=== PATIENT | male | born 1970 | race Caucasian/White ===

== ENCOUNTER → 2018-04-25 11:37 | Outpatient (CLI) | payer OTHER, SELFPAY ==
[2018-04-25 14:22] LABS: Vitamin B12 1418 pg/mL (211-911); Vitamin D,25 Hydroxy 34.6 ng/mL (29.95-100.01)
[2018-04-25 14:30] LABS: Erythrocyte Sedimentation Rate 7 mm/hr (0-15); Hematocrit 48.4 % (40-54); Hemoglobin 16.2 g/dl (13.0-16.5); Mean Corp Hgb Conc 33.5 g/gl (32-36); Mean Corpuscular Hgb 33.2 pg (27.0-32.0); Mean Corpuscular Volume 99.2 fL (80-94); Platelet Count 166 K/mm3 (150-450); RBC Distribution Width CV 12.4 % (11.6-14.6); RBC Distribution Width SD 44.9 fl (35.1-43.9); Red Blood Count 4.88 M/mm3 (4.6-6.2); White Blood Count 5.5 K/mm3 (4.4-11.0)
[2018-04-25 14:34] LABS: Scan Indicated on CBC? Y/N NO
[2018-04-25 14:43] LABS: Anion Gap 10 (5-15); BUN 13 mg/dL (7-18); Chloride 106 mmol/L (98-107); Creatinine, Serum 1.08 mg/dL (0.70-1.30); EST Glomerular Filtration Rate 78 mL/min (>60); Est Glom Filt Rate - Afr Amer 94 mL/min (>60); Glucose 80 mg/dL (74-106); Iron 116 ug/dL (65-175); Magnesium 2.1 mg/dL (1.6-2.6); Potassium 4.1 mmol/L (3.5-5.1); Sodium Level 143 mmol/L (136-145); Thyroid Stim Hormone (TSH) 2.23 uIU/mL (0.358-3.74)
== END ==
PROVIDERS: Family Provider Family Medicine; PCP Family Medicine; Visit Provider Family Medicine
DX: N18.9 Chronic kidney disease, unspecified (principal); G62.9 Polyneuropathy, unspecified
CPT/HCPCS: 36415; 80048; 82306; 82607; 83540; 83735; 84443; 85027; 85652

== ENCOUNTER → 2018-12-26 15:18 | Outpatient (CLI) | payer MEDICAID, SELFPAY ==
[2018-12-26 18:11] LABS: Vitamin D,25 Hydroxy 60.4 ng/mL (29.95-100.01)
[2018-12-30 12:07] LABS: Testosterone, % Free 3.98 % (1.50-4.20); Testosterone, Free 29.69 ng/dL (5.00-21.00)
[2019-01-02 17:28] LABS: Sex Hormone-binding Globulin 17.1 nmol/L (16.5-55.9); Testosterone, Total 746 ng/dL (264-916)
== END ==
PROVIDERS: Family Provider Family Medicine; PCP Family Medicine; Visit Provider Family Medicine
DX: E55.9 Vitamin D deficiency, unspecified (principal); Z79.890 Hormone replacement therapy
CPT/HCPCS: 36415; 82306; 84270; 84402; 84403

== ENCOUNTER → 2019-03-15 10:43 | Outpatient (CLI) | payer MEDICAID, SELFPAY ==
--- NOTE | 2019-03-15 10:52 | RAD_ITS ---
STUDY: X-RAY CHEST REASON FOR EXAM: Male, 48 years old. Cough. TECHNIQUE: PA and lateral views. COMPARISON: 02/19/2016. FINDINGS: The lungs are clear and expanded. There is no demonstrated pleural abnormality. Normal size heart. Normal mediastinum and rah. Normal visualized pulmonary arteries. Normal visualized aortic arch and descending thoracic aorta. Mild anterior wedging of the upper T9, upper T11 and upper T12 vertebral bodies are presumably from remote injury. They are unchanged. Normal visualized ribs, clavicles, and shoulders. Radiopaque coils in the region of the common hepatic artery from previous embolization procedure. RAD/Chest PA and Lateral IMPRESSION: 1. Normal x-ray examination of the chest. 2. Interval clearing of subsegmental atelectases in the lower lobes. 3. Mild anterior wedging of the upper T9, upper T11 and upper T12 vertebral bodies are presumably from remote injury. They are unchanged. 4. Radiopaque metallic coils in the upper abdomen from previous embolization in the region of the common hepatic artery or GDA. Electronically Signed: Enoch Yeboah MD at 15:53 EDT , Service support ,
== END ==
PROVIDERS: Family Provider Family Medicine; PCP Family Medicine; Referring Provider Family Medicine; Visit Provider Family Medicine
DX: R05 Cough (principal)
CPT/HCPCS: 71046

== ENCOUNTER → 2019-05-03 09:43 | Outpatient (CLI) | payer OTHER, SELFPAY ==
--- NOTE | 2019-05-03 09:55 | RAD_ITS ---
STUDY: X-RAY - ESOPHAGUS (BARIUM SWALLOW) WITH FLUOROSCOPY REASON FOR EXAM: Male, 48 years old. Dyspepsia. TECHNIQUE: 16 view(s) of the esophagus were obtained following swallowing of barium. FLUOROSCOPY TIME (if supplied): (0:25) minutes/seconds COMPARISON: None. FINDINGS: There is no demonstrated esophageal foreign body. There is no demonstrated stricture or mucosal abnormality. Normal gastroesophageal junction, without a demonstrated hiatal hernia. The patient ingested a 12 mm tablet of barium without difficulty. Normal visualized aortic arch and descending thoracic aorta. Normal visualized pulmonary parenchyma. Normal visualized osseous structures of the thorax. RAD/Esophagus Only IMPRESSION: Normal plain film x-ray examination (barium swallow) of the esophagus. Electronically Signed: Franklin Cerna, at 14:47 EDT , Service support ,
== END ==
PROVIDERS: Family Provider Family Medicine; PCP Family Medicine; Referring Provider Family Medicine; Visit Provider Family Medicine
DX: R10.13 Epigastric pain (principal)
CPT/HCPCS: 74220

== ENCOUNTER → 2019-05-12 10:14 | Outpatient (CLI) | payer OTHER, SELFPAY ==
[2019-05-12 12:39] LABS: Absolute Lymphocyte Count 1.18 X10^3/uL (0.83-4.51); Absolute Neutrophil Count 3.1 X10^3/uL (2.0-7.7); Basophil# 0.03 X10^3/uL; Basophil% 0.6 % (0-1); Hematocrit 52.6 % (40-54); Hemoglobin 17.2 g/dL (13.0-16.5); Lymphocyte # 1.18 X10^3/ul (4.0); Lymphocyte % 23.5 % (19-41); Mean Corp Hgb Conc 32.7 g/dL (32-36); Mean Corpuscular Hgb 32.7 pg (27.0-32.0); Mean Platelet Vol. 11.5 fl (6.2-12.0); Monocyte# 0.61 X10^3/uL; Monocyte% 12.2 % (0-10); NRBC Flagged by Analyzer 0 % (0-5); Neutrophil # 3.09 X10^3/uL (2.7-7.7); Neutrophil % 61.5 % (47-70); Platelet Count 177 K/mm3 (150-450); RBC Distribution Width CV 12.9 % (11.6-14.6); RBC Distribution Width SD 47.8 fl (35.1-43.9); Red Blood Count 5.26 M/mm3 (4.6-6.2)
[2019-05-12 12:51] LABS: Erythrocyte Sedimentation Rate 1 mm/hr (0-15)
[2019-05-12 12:54] LABS: ALB/GLOB Ratio 1.2 RATIO (0.9-2.4); AST(SGOT) 23 U/L (15-37); Alanine Aminotransfer ALT/SGPT 31 U/L (16-61); Albumin, Serum 3.7 g/dL (3.2-5.0); Alkaline Phosphatase 68 U/L (45-117); Anion Gap 6 (5-15); BUN 18 mg/dL (7-18); BUN/Creat Ratio 15.5 RATIO (10-20); CRP < 2.90 mg/L (0.0-3.0); Calcium,Total 8.9 mg/dL (8.5-10.1); Chloride 109 mmol/L (98-107); Cholesterol 163 mg/dL (200); Creatinine, Serum 1.16 mg/dL (0.70-1.30); EST Glomerular Filtration Rate 71 mL/min (>60); Est Glom Filt Rate - Afr Amer 86 mL/min (>60); Estradiol 29.5 pg/mL; Ferritin 56 ng/mL (26-388); Glucose 79 mg/dL (74-106); High Density Lipoprotein 49 mg/dL; Iron 123 ug/dL (65-175); Magnesium 2.3 mg/dL (1.6-2.6); Potassium 4.8 mmol/L (3.5-5.1); Protein, Total 6.7 g/dL (6.4-8.2); Sodium Level 145 mmol/L (136-145); Thyroid Stim Hormone (TSH) 2.56 uIU/mL (0.358-3.74); Triglycerides 59 mg/dL; Very Low Density Lipoprotein 12 mg/dL (5-40)
[2019-05-12 12:56] LABS: Vitamin B12 567 pg/mL (211-911); Vitamin D,25 Hydroxy 68.4 ng/mL (29.95-100.01)
[2019-05-15 12:30] LABS: ANTINUCLEAR ANTIBODIES DIRECT Negative (Negative)
[2019-05-16 16:08] LABS: Testosterone, Free 16.43 ng/dL (5.00-21.00)
[2019-05-17 12:55] LABS: Testosterone, % Free 3.65 % (1.50-4.20); Testosterone, Total 450 ng/dL (264-916)
== END ==
PROVIDERS: Family Provider Family Medicine; PCP Family Medicine; Referring Provider Family Medicine; Visit Provider Family Medicine
DX: G62.9 Polyneuropathy, unspecified (principal); Z13.220 Encounter for screening for lipoid disorders; R79.89 Other specified abnormal findings of blood chemistry
CPT/HCPCS: 36415; 80053; 80061; 82306; 82607; 82670; 82728; 83540; 83735; 84402; 84403; 84443; 85025; 85652; 86038; 86140

== ENCOUNTER 2019-12-21 10:36 | Day surgery (SDC) | payer OTHER, SELFPAY ==
[2019-12-15 11:13] VITALS: BMI 29.3
--- NOTE | 2019-12-16 07:56 | HP_ITS ---
Intake Vital Signs 12/15/19 Height 5 ft 9.25 in 12/15/19 Weight: 200 lb 12/15/19 BMI 29.3 12/15/19 BP 152/94 H 12/15/19 Blood Pressure Location Rt brachial 12/15/19 Position Sitting 12/15/19 Respiration 18 Intake Visit Reasons: Inguinal Hernia Room Service Clerk Required: No Is patient in pain?: No Allergies citalopram [From Celexa] Allergy (Mild, Verified 12/15/19 11:04) Unknown sertraline [From Zoloft] Allergy (Mild, Verified 12/15/19 11:04) Unknown Medications AA no.8 343 mg-carnitine 20 mg-grape 10 mg-cocoa 56 mg-hpqd472 capsule cap PO 12/15/19 [History Confirmed 12/15/19] cholecalciferol (vitamin D3) 50 mcg (2,000 unit) capsule 50 mcg PO DAILY 12/15/19 [History Confirmed 12/15/19] dimenhydrinate 50 mg tablet,extended release mg PO 12/15/19 [History Confirmed 12/15/19] fish, borage, flaxseed oils-omega 3,6,9 cb #1 400 mg-400 mg-400 mg cap 1 cap PO DAILY 12/15/19 [History Confirmed 12/15/19] kecgkylc-tbxkde-gko-cxi-pci-mgfu-horse 100 mg-100 mg-100 mg-125 mg tab tab PO 12/15/19 [History] PFSH Medical History Tinnitus (Acute) HTN (hypertension) (Chronic) Surgical History Previous back surgery (Acute) S/P left knee surgery (Acute) S/P right knee surgery (Acute) S/P surgical manipulation of ankle joint (Acute) S/P tonsillectomy (Acute) Family History Father Diabetes Uncle Cancer PANCREATIC Social History (Updated 12/16/19 @ 07:[address] Matt Hollis MD) Smoking Status: Never smoker alcohol intake: current alcohol intake frequency: holidays/special occasions only HPI HPI HPI: SATINDER MACK, is a 49 M who presents to the office today for HPI HPI Surgical H&P: Yes HPI: SATINDER MACK, is a 49 M who presents to the office today for left groin bulge. The patient reports that this started late last summer. He reports that it hurts with lifting. He reports that there is bulging and this past week he got worse and he has been having worse pain for the last week. There is no radiation of the pain. He does not describe any pain in his contralateral groin. ROS General General: Yes weight change; no fatigue Cardio Cardiovascular: Yes high blood pressure; no murmur, pacemaker, heart disease, atrial fibrillation, heart attack, heart stent, palpitations, shortness of breat with exertion or chest pain Psych Psychiatric: Yes depression and anxiety Resp Respiratory: No shortness of breath, Yes sleep apnea, Yes cough, No COPD, No asthma, No emphysema, No wheezing Gastro Gastrointestinal: No nausea or vomiting, No diarrhea, Yes constipation, No blood in stool, No acid reflux, Yes hemorrhoids, No ulcers, No gallbladder problem, No black,tarry stools Additional Details: Groin pain and bulging in the left groin Miguel Hematologic: No blood thinners Exam Const General: cooperative Orientation: alert, oriented x3 HENMT Head: normal to inspection Ears: hearing grossly normal bilaterally Eyes General: appearance normal, both eyes and all related structures Visual Ramirez: normal visual ramirez by confrontation Neck Neck: normal visual inspection Chest Chest palpation & inspection: normal inspection of the chest Resp Effort & Inspection: normal respiratory effort Auscultation: clear to auscultation bilaterally Cardio Rate: regular rate Rhythm: regular rhythm Heart Sounds: no murmurs GI Inspection: non-distended Palpation: soft, hernia indirect inguinal on the left, nontender Musc Cervical Spine: normal cervical lordosis, cervical ROM normal Skin General: no rashes or lesions noted Neuro General: alert, oriented x3 Cranial Nerves: CN's II-XI intact bilaterally Cognition: normal cognition Extrem General: normal to inspection, full ROM Psych Appearance: grossly normal Affect: normal affect Assessment & Plan Problems 1. Left inguinal hernia K40.90 Plan The patient has a left inguinal hernia. It is soft and reducible. The patient would like this repaired. I discussed open and laparoscopic approach with him. I discussed robotic assisted laparoscopic surgery. The patient would like to proceed with a laparoscopic robotic assisted left inguinal hernia repair with mesh. I discussed mesh placement in detail. I discussed the risks of the procedure including not limited to bleeding, infection, injury to surrounding organs, injury to bowel, chronic groin pain, nerve injury, hernia recurrence. The patient understands all the risks and would like to proceed. I also discussed the possibility of a contralateral hernia noticed intraoperatively. If the patient has a contralateral hernia he would like it repaired. Matt Hollis MD Pager: [facility] [address] [place] [address] [address] [place] [address] Office: Coding Level of Care Code Off vis,new,level 4 Diagnoses Left inguinal hernia K40.90 Time Spent (min) 45 12/16/19 4896 <Electronically signed by Matt cuadra MD> Date _ Matt Hollis MD I have re-examined the patient. There are no clinical changes since date of exam. I discussed the risk of COVID transmission with the patient as well. The patient understands the risks.
[2019-12-21] VITALS (9 sets, daily range): BP systolic 118–144; BP diastolic 79–85; PULSE 59–96; RESP 16; TEMP 36.6–36.8; O2SAT 92–99; BMI 28.9
--- NOTE | 2019-12-21 | HERN_PTH ---
PATIENT: SATINDER MACK [place] [facility] [id number] AGE/SX: 49/M ROOM: RE12/21/[address]: Dr. Matt Hollis MD : 1970 BED: DIS: 12/21/2019 SPEC #: [id number] RECD: 12/22/19 08:54 STATUS: AMRITA RERosa Elena #: [id number] STACY: 12/21/19 00:[address]: Matt Hollis DEPT: SURGICAL PATHOLOGY RECD BY: José Osullivan ENTERED: 12/22/19 08:55 SP TYPE: Hernia OTHR DR: Dr. Anshu iBllings MD Tissues: HERNIA Procedures: Surgery Specimen Level III HEADER OPERATION: Lap robotic inguinal hernia PRE-OP DIAGNOSIS: Left inguinal hernia K40.90 TISSUE SUBMITTED: Left hernia lipoma MICROSCOPIC DIAGNOSIS Left hernia lipoma: Mature adipose tissue, consistent with lipoma. SJ:joseph 12/25/19 MICROSCOPIC DESCRIPTION Slides are reviewed. GROSS DESCRIPTION Received in fixative is one container labeled with the patient's name and designated hernia left lipoma. The specimen consists of a piece of yellow adipose tissue measuring 6 x 5 x 1 cm. Sections reveal yellow adipose cut surfaces without areas of hemorrhage, necrosis or cystic degeneration. Asset Protection Representative sections are submitted in one cassette. / SJ:rg 12/22/19 TC:1 CPT: 69585
[2019-12-21] MEDS: Lactated Ringers 1,000 ML 100 ML IV ×2 (11:23→11:27)
[2019-12-21] MEDS: Cefazolin 2 GM in 0.9% Normal Saline 100 ML IV (12:15)
[2019-12-21] MEDS: Bupivacaine Mpf 0.5% 30 ML VIAL (12:42)
--- NOTE | 2019-12-21 14:16 | OP.PCM_ITS ---
Problem List (1) Left inguinal hernia Status: Acute Report of Operation Date of Procedure: 12/21/19 Pre-Operative Diagnosis: Left inguinal hernia Post-Operative Diagnosis: Same Surgery/Procedure Performed:: Robotic assisted laparoscopic left inguinal hernia repair with mesh Specimen's removed: Left cord lipoma Description of Procedure: Patient was brought back to the operating room and general anesthesia was induced. The abdomen was prepped and draped in the usual sterile fashion. An incision was made superior to the umbilicus and deepened the fascia. The fascia was elevated and a Veress needle was placed into the abdomen. A drop test was performed. The abdomen was insufflated to 15 mmHg. The Veress needle was removed and the camera port was placed into the abdomen and the camera was placed into the abdomen to inspect for injuries and there were none. The patient appeared to have an indirect left inguinal hernia. The right inguinal canal was intact with no hernia. Patient was placed in the steep Trendelenburg position and the robot was docked. An incision was made in the anterior peritoneum in the left lower quadrant and the dissection was carried down to the hernia sac. The hernia sac was reduced and the adhesions were lysed. Patient had a lipoma in the left cord which was also reduced and brought into the abdominal cavity. Pro-program analyst mesh was unfolded and placed in the left lower quadrant completely covering the inguinal hernia. The mesh covered the hernia with good overlap and then the peritoneum was reapproximated using a running 3-0V lock suture. The peritoneum completely cover the mesh is in the case. Next the robot was undocked and the camera port was replaced with a laparoscopic bag and the lipomas placed into the bag and removed through the midline incision. The midline fascia was then closed with an 0 Vicryl suture. All the incisions were anesthetized with lidocaine and closed with interrupted 4-0 Monocryl sutures. Steri-Strips and bandages were then applied. The scrotum was tacked to the end the case and contain both testicles. Patient was brought to PACU in stable condition and tolerated the procedure well. Grafts/Implants Used: Pro-program analyst mesh - Admit VTE Documentation VTE Mechan Device Prophylaxis: SCD's
--- NOTE | 2019-12-21 14:21 | DCINST_ITS ---
Discharge Diet: Light diet - advance as tolerated Discharge Activity: Return to Normal Activity, May Not Drive - for 2-3 days or while taking narcotic pain meds., May Shower - with the bandage in place 1-2 days after surgery. Lifting Restrictions: 20 pounds for 4 weeks. Additional Activity Instructions:: Climbing stairs is fine, walking is encouraged. Sitting in bed may be uncomfortable. Sitting up using your lateral muscles (sitting up sideways) is usually more comfortable. Do not drive, work heavy equipment of sign legal documents for 24 hours. If your hernia repair was an ingunial repair, you may have scrotal swelling, an ice pack and/or athletic support can provide more comfort. Pain medications may cause nausea, you should typically eat light foods as you take your pain medications. Pain medications may also cause constipation. If you have difficulty with this, discuss with your doctor. Call your doctor if your incision/area has: Continuous Slow Oozing, Sudden Increased Bleeding, Increased Pain/ Swelling, Increased Redness, Foul Smelling Discharge Call your doctor if you observe: Fever of 101 or Higher Suture Line Care: Avoid Pulling/Pushing, Avoid Pinching/Bending Change Dressing in (Days):: 3 - Leave steri-strips for 1 week. May protect with a guaze bandaid. Cleanse incision/area with: Keep Dressing Clean & Dry Allergies/Adverse Reactions: Allergies citalopram [From Celexa] Allergy (Mild, Verified 12/21/19 10:39) Unknown sertraline [From Zoloft] Allergy (Mild, Verified 12/21/19 10:39) Unknown Medications to take at Discharge cholecalciferol (vitamin D3) 50 mcg (2,000 unit) capsule 50 mcg PO DAILY 12/15/19 fish, borage, flaxseed oils-omega 3,6,9 cb #1 400 mg-400 mg-400 mg cap 1 cap PO DAILY 12/15/19 nftdlppb-jnoqbx-xrq-apv-inu-jpml-horse 100 mg-100 mg-100 mg-125 mg tab 1 tab PO DAILY 12/15/19 Dolpa 1 tab PO DAILY 12/18/19 Same 1 cap PO DAILY 12/18/19 Tryptophan [l-Tryptophan] 500 mg PO DAILY 12/18/19 Tyrosine [Pure l-Tyrosine] 500 mg PO DAILY 12/18/19 Primary Care Physician: César Billings MD [Primary Care Provider] - Test Results: Test results from this visit will be discussed in further detail at your follow- up appointment, if applicable. Please Follow Up With: Matt Hollis MD When: Please call to schedule 2 week follow up appointment. [phone]
--- NOTE | 2019-12-21 18:29 | SUR.PHASEII ---
bladder scan after pt had dribbling of urine showed 376ml
[2019-12-21] MEDS: Tamsulosin HCl 0.4 MG Capsule PO (18:38)
== END 2019-12-21 18:50 | disposition home or self-care (01) ==
LOC: SDC 10:37 → AC 10:38
PROVIDERS: PCP Family Medicine; Referring Provider Surgery; Visit Provider Surgery
PROC: 0YQ64ZZ Repair Left Inguinal Region, Percutaneous Endoscopic Approach (ICD-10-PCS; CPT 49650; principal; 2019-12-21 11:40)
DX: K40.90 Unilateral inguinal hernia, without obstruction or gangrene, not specified as recurrent (principal); D17.6 Benign lipomatous neoplasm of spermatic cord; I10 Essential (primary) hypertension
CPT/HCPCS: 00840; 49650; 55559; 88302; 88304; J7120; J2405

== ENCOUNTER → 2020-05-20 10:22 | Outpatient (CLI) | payer OTHER, SELFPAY ==
[2019-12-21 10:54] VITALS: BMI 28.9
[2020-05-20 12:48] LABS: Anion Gap 5 (5-15); BUN 15 mg/dL (7-18); Calcium,Total 8.8 mg/dL (8.5-10.1); Chloride 108 mmol/L (98-107); Creatinine, Serum 1.07 mg/dL (0.70-1.30); EST Glomerular Filtration Rate 78 mL/min (>60); Est Glom Filt Rate - Afr Amer 94 mL/min (>60); Glucose 83 mg/dL (74-106); Sodium Level 140 mmol/L (136-145)
[2020-05-22 09:44] LABS: Vitamin D,25 Hydroxy 41.1 ng/mL
[2020-05-23 14:08] LABS: Testosterone, Free 8.97 ng/dL (5.00-21.00)
[2020-05-23 14:52] LABS: Testosterone, % Free 4.04 % (1.50-4.20); Testosterone, Total 222 ng/dL (264-916)
== END ==
LOC: MFPLAB 10:22
PROVIDERS: PCP Family Medicine; Visit Provider Family Medicine
DX: R79.89 Other specified abnormal findings of blood chemistry (principal); F32.9 Major depressive disorder, single episode, unspecified
CPT/HCPCS: 36415; 80048; 82306; 82533; 84402; 84403; 84443

== ENCOUNTER → 2020-07-05 06:38 | Outpatient (CLI) | payer OTHER, SELFPAY ==
[2019-12-21 10:54] VITALS: BMI 28.9
--- NOTE | 2020-07-05 06:56 | MRI_ITS ---
STUDY: MRI LUMBAR SPINE WITHOUT CONTRAST REASON FOR EXAM: Male, 49 years old. L4/5 DISCECTOMY 12 YRS AGO, C/O BACK DISCOMFORT, TINGLING IN TESTICLES, ERECTILE DYSFUNCTION, NEUROPATHY BILATERAL FEET TECHNIQUE: Standardized fat and water weighted pulse sequences were obtained in the sagittal and axial planes. COMPARISON: 01/12/2008 FINDINGS: T12-L1: Normal endplates. Normal disc height, hydration and morphology. Normal bilateral facet joints. Normal central canal and bilateral lateral recesses. Normal bilateral intervertebral neural foramina. Normal lumbar lordosis. There is no substantial scoliosis. Normal conus medullaris that terminates at the T12 L1-2: Normal endplates. Normal disc height, hydration and morphology. Normal bilateral facet joints. Normal central canal and bilateral lateral recesses. Normal bilateral intervertebral neural foramina. L2-3: Interval development of a mild bilobed disc protrusion with a left paracentral annular tear produces mild spinal stenosis and mild bilateral neural foraminal stenosis. L3-4: Interval development of mild bilateral facet hypertrophy and ligament flavum hypertrophy. Mild broad disc protrusion produces mild spinal stenosis and mild bilateral neural foraminal stenosis. L4-5: Interval left laminotomy with resection of the left paracentral and preforaminal extrusion. Mild bilateral facet hypertrophy and ligament flavum hypertrophy. Mild bilobed disc protrusion produces mild spinal stenosis and mild left neural foraminal stenosis and moderate right neural foraminal stenosis with abutment of the right L4 nerve root laterally. L5-S1: Interval development of a moderate sized central disc protrusion produces moderate spinal stenosis with mild bilateral lateral recess stenosis and no neural foraminal stenosis. Normal visualized sacral ala. Normal visualized paraspinous soft tissue structures. MRI/Spine Lumbar (Routine) IMPRESSION: Multilevel degenerative changes, as described above. Electronically Signed: Armando Stanton MD at 10:27 EST Tel , Service support ,
== END ==
PROVIDERS: PCP Family Medicine; Referring Provider Family Medicine; Visit Provider Family Medicine
DX: M54.9 Dorsalgia, unspecified (principal)
CPT/HCPCS: 72148

== ENCOUNTER → 2020-07-17 10:26 | Outpatient (CLI) | payer OTHER, SELFPAY ==
[2019-12-21 10:54] VITALS: BMI 28.9
[2020-07-17 12:34] LABS: Absolute Lymphocyte Count 1.18 X10^3/uL (0.83-4.51); Absolute Neutrophil Count 4.4 X10^3/uL (2.0-7.7); Basophil# 0.04 X10^3/uL; Basophil% 0.6 % (0-1); Eosinophils% 1.6 % (0-5); Hematocrit 51.7 % (40-54); Hemoglobin 16.8 g/dL (13.0-16.5); Lymphocyte # 1.18 X10^3/ul (4.0); Lymphocyte % 18.6 % (19-41); Mean Corp Hgb Conc 32.5 g/dL (32-36); Mean Corpuscular Hgb 32.7 pg (27.0-32.0); Mean Corpuscular Volume 100.8 fL (80-94); Mean Platelet Vol. 11.4 fl (6.2-12.0); Monocyte# 0.62 X10^3/uL; Monocyte% 9.8 % (0-10); NRBC Flagged by Analyzer 0 % (0-5); Neutrophil # 4.38 X10^3/uL (2.7-7.7); Neutrophil % 68.9 % (47-70); Platelet Count 197 K/mm3 (150-450); RBC Distribution Width SD 45.9 fl (35.1-43.9); Red Blood Count 5.13 M/mm3 (4.6-6.2); White Blood Count 6.4 K/mm3 (4.4-11.0)
[2020-07-17 12:48] LABS: Erythrocyte Sedimentation Rate 8 mm/hr (0-15)
[2020-07-17 13:25] LABS: BUN 19 mg/dL (7-18); Creatinine, Serum 1.07 mg/dL (0.70-1.30); EST Glomerular Filtration Rate 78 mL/min (>60); Glucose 73 mg/dL (74-106)
[2020-07-17 13:26] LABS: ALB/GLOB Ratio 1.2 RATIO (0.9-2.4); AST(SGOT) 21 U/L (15-37); Alanine Aminotransfer ALT/SGPT 35 U/L (16-61); Alkaline Phosphatase 76 U/L (45-117); Anion Gap 6 (5-15); BUN/Creat Ratio 17.8 RATIO (10-20); CRP < 2.90 mg/L (0.0-3.0); Calcium,Total 9.4 mg/dL (8.5-10.1); Chloride 106 mmol/L (98-107); Est Glom Filt Rate - Afr Amer 94 mL/min (>60); Globulin 3.2 g/dL (2.2-4.2); Potassium 3.7 mmol/L (3.5-5.1); Protein, Total 7.2 g/dL (6.4-8.2); Sodium Level 138 mmol/L (136-145); Thyroid Stim Hormone (TSH) 1.57 uIU/mL (0.358-3.74)
[2020-07-18 16:09] LABS: Endomysial Antibody IgA Negative (Negative)
[2020-07-18 16:18] LABS: Deamidated Gliadin IgA 3 units (0-19); Deamidated Gliadin IgG 5 units (0-19); Immunoglobulin A 103 mg/dL (90-386); t-Transglutaminase IgA <2 U/mL (0-3)
[2020-07-23 12:08] LABS: Alternaria alternata <0.10 kU/L (Class 0); Bermuda Grass <0.10 kU/L (Class 0); Bluegrass, Kentucky <0.10 kU/L (Class 0); Cat Hair/Dander, Standard <0.10 kU/L (Class 0); D farinae Mite <0.10 kU/L (Class 0); D pteronyssinus <0.10 kU/L (Class 0); Dog Epithelia <0.10 kU/L (Class 0); Elm, American White <0.10 kU/L (Class 0); Oak, White <0.10 kU/L (Class 0); Plantain, English <0.10 kU/L (Class 0); Ragweed, Short/Common <0.10 kU/L (Class 0)
[2020-07-23 12:58] LABS: Mouse Urine <0.10 kU/L (Class 0)
== END ==
LOC: MFPLAB 10:29
PROVIDERS: PCP Family Medicine; Visit Provider Family Medicine
DX: R79.89 Other specified abnormal findings of blood chemistry (principal); K58.9 Irritable bowel syndrome, unspecified; R68.89 Other general symptoms and signs
CPT/HCPCS: 36415; 80053; 82784; 83516; 84403; 84443; 85025; 85652; 86003; 86140; 86255

== ENCOUNTER → 2020-07-19 15:44 | Outpatient (CLI) | payer OTHER, SELFPAY ==
[2019-12-21 10:54] VITALS: BMI 28.9
== END ==
PROVIDERS: PCP Family Medicine; Referring Provider Family Medicine; Visit Provider Family Medicine
DX: K58.9 Irritable bowel syndrome, unspecified (principal)
CPT/HCPCS: 87177; 87209

== ENCOUNTER 2020-08-14 09:00 | Outpatient (RCR) | payer OTHER, SELFPAY ==
[2019-12-21 10:54] VITALS: BMI 28.9
--- NOTE | 2020-07-29 10:59 | HP.PTEVAL_ITS ---
Patient's Visit Information SATINDER MACK is a 49 year old M referred to Physical Therapy by HARSH BONILLA with a diagnosis of Dorsalgia. Date of Evaluation: 07/10/20 Physical Therapist: Michael Arriola DPT - Visit Plan Frequency: 1x/Week Duration: 6 Weeks Plan: Start with hip flexor relase techniques, lower/upper abdominal strengthening, multifidus strengthening. Progress patient ROM to reduce fear avoidance of lumbar ROM. - Subjective Pt. is here today for his initial evaluation with diagnosis dorsalgia. Pt. reports having increased pain over the past 6 months. He had a laminectomy previously a few years ago without issues. Pt. reports having some abdominal pain and tingling in his legs and L hip. Pt. reports no mech of inury for new onset, but reports stopping his testosterone supplement and had to stop working out due to COVID. Pt. reports walking up with some abdominal tightness and the soreness inhis legs. He has recently been working on hip flexor stretching. Pt. reports no movements that make his symptoms worse. He believes that his change in symptoms might be due to decreased exercise. Pt. is hopeful to decrease symptoms and get back to working out with minimal limitations. - Pain lumbar spine Pain Intensity (Out of 10): 2 Pain Intensity Range: 0, 4 abdomen Pain Intensity (Out of 10): 2 Pain Intensity Range: 0, 4 - Objective POSTURE: Pt. has good posture, normal lordosis lumbar spine, normal/symmetrical illiac crest. PALPATION: Pt. is tender at bilateral piriformis muscle bellies, mild tenderness at bilateral multifidus. NEURO: normal throughout. ROM: LUMBAR SPINE: flexion min loss (tightness, fear avoidance), extension min loss (tight ness, fear avoidance), SB nil loss bilat NE, rotation min loss bilat (tightness, fear avoidance). Pt. has great HS length, slight tighness in B hip flexors. MMT: BLE strenght 5/5 without increase in symptoms. lower abdominals- 4/5, upper abdominals- 4/5, lumbar extension 4/5. GAIT: Pt. has normal gait pattern without increase in symptoms. STAIRS: normal without increase in symptoms. - Special Tests L/S Slump test left side: Negative L/S Slump test right side: Negative L/S Left Straight Leg Raise: Negative L/S Right Straight Leg Raise: Negative L/S Prone Instability Test: Positive Lumbar Standing: Flexion - Mechanical Response: No effect Lumbar Standing: Flexion - Symptoms During Testing: No effect Lumbar Standing: Flexion - Symptoms After Testing: No effect Lumbar Standing: Extension - Mechanical Response: No effect Lumbar Standing: Extension - Symptoms During Testing: No effect Lumbar Standing: Extension - Symptoms After Testing: No effect Lumbar Standing: Right Side Glides - Mechanical Response: No effect Lumbar Standing: Right Side Enterprise - Symptoms During Testing: No effect Lumbar Standing: Right Side Enterprise - Symptoms After Testing: No effect Lumbar Standing: Left Side Enterprise - Mechanical Response: No effect Lumbar Standing: Left Side Enterprise - Symptoms During Testing: No effect Lumbar Standing: Left Side Enterprise - Symptoms After Testing: No effect Lumbar Lying: Flexion - Mechanical Response: No effect Lumbar Lying: Flexion - Symptoms During Testing: No effect Lumbar Lying: Flexion - Symptoms After Testing: No effect Lumbar Lying: Extension - Mechanical Response: No effect Lumbar Lying: Extension - Symptoms During Testing: No effect Lumbar Lying: Extension - Symptoms After Testing: No effect Lumbar Static: Slouched Sit - Mechanical Response: No effect Lumbar Static: Slouched Sit - Symptoms During Testing: No effect Lumbar Static: Slouched Sit - Symptoms After Testing: No effect Lumbar Static: Sitting Erect - Mechanical Response: No effect Lumbar Static: Sitting Erect - Symptoms During Testing: No effect Lumbar Static: Sitting Erect - Symptoms After Testing: No effect Lumbar Static:Lying Prone in Extension - Mechanical Response: No effect Lumbar Static: Lying Prone in Extension - Sx During Testing: No effect Lumbar Static: Lying Prone in Extension - Sx After Testing: No effect - Goals Goal 1:: LTG: Pt. to be I with HEP. Goal Time Frame: 4-6 Weeks Goal 2:: STG: Pt. to have decreased pain upon waking to 0-2/10 allowing for improved quality of life. Goal Time Frame: 2-4 Weeks Goal 3:: LTG: Pt. to have increased hip flexor length by 25% allowing for decreased anterior pelvic tilting. Goal Time Frame: 4-6 Weeks Goal 4:: LTG: Pt. to have decreased lumbar spine, abdominal pain to 0-2/10 pain with all daily activities. Goal Time Frame: 4-6 Weeks Goal 5:: LTG: Pt. to have increased multifidus and abdominal strength to 5/5 throughout. Goal Time Frame: 4-6 Weeks - Rehabilitation Potential Physical Therapy Diagnosis: Pt. has signs and symptoms consistent with dorsalgia without radiculopathy. His special testing did not exaccerbate his symptoms today, as well as no movements reduced or increased symptoms. Pt. would benefit from PT to work on abdominal strengthening and multifidus strengthening. Rehabilitation Potential: Excellent - Anticipated Interventions Patient/Client Instruction: Educate patient on: Condition, Plan of Care, Risk Factors, Benefits of Fitness Program For the Purpose of:: To facilitate caregiver knowledge, To improve self management, To prevent re-injury, To improve ability to perform tasks related to life management, To improve tolerance to ADL's Therapeutic Exercise to Include: Strength training, Power training, Body mechanics, Postural training, Flexibilty training, Passive ROM, Active ROM, Dynamic Lumbar Stabilization, Nicol Exercises For the Purpose of:: To decrease pain, To decrease swelling/inflammation, To increase ROM, To improve nutrient delivery to tissue, To increase oxygenation perfusion, To improve muscle performance and motor function, To improve ability to perform ADL's, To decrease soft tissue restriction, To increase flexibility/ROM Thank you for the opportunity to evaluate your patient. For Medicare and Medicare HMO plans, please review the plan of care and approve it. It will need to be FAXED BACK to us at [phone] for Medicare purposes. For Medicare only, by signing this I certify the plan of care. Please let me know if there are questions or concerns regarding this plan of care. Physician Sig nature: Date:
--- NOTE | 2020-08-14 13:20 | HP.PTREVAL_ITS ---
Dr. César Billings MD, It has been my pleasure to treat SATINDER MACK over the last 5 visits for Dorsalgia. Please see the progress note below for an update on the physical therapy plan of care! Subjective: Pt. reports overall doing a little better, but is still having increased pain in his abdomen, which seems to be unchanged by lumbar spine ROM. She is still having tightness in AMs. He is overall more active, but is still anxious about his abdomenal tightness. Objective/Function: ROM: Lumbar spine: full ROM, patient did feel a little bit better after end range of extension. Pt. continues to have great HS length bilaterally. MMT: 5/5 throughout. Pt. is getting back to all working out routine without issues. Plan Plan: Pt. is independent with hip/core strengthening exercises. He is adding in end range extension progress. He felt today that his might have helped his ab dominal symptoms. Pt. to trial these exercise son his own for 3-4 weeks and follow up with physician as needed. I will keep his case open in case he needs to follow up. Goals Goal 1:: LTG: Pt. to be I with HEP. Goal Time Frame: 4-6 Weeks Goal Progress: Goal Met Goal 2:: STG: Pt. to have decreased pain upon waking to 0-2/10 allowing for improved quality of life. Goal Time Frame: 2-4 Weeks Goal Progress: Goal Met Goal 3:: LTG: Pt. to have increased hip flexor length by 25% allowing for decreased anterior pelvic tilting. Goal Time Frame: 4-6 Weeks Goal Progress: Goal Met Goal 4:: LTG: Pt. to have decreased lumbar spine, abdominal pain to 0-2/10 pain with all daily activities. Goal Time Frame: 4-6 Weeks Goal Progress: Progressing Goal 5:: LTG: Pt. to have increased multifidus and abdominal strength to 5/5 throughout. Goal Time Frame: 4-6 Weeks Goal Progress: Goal Met Anticipated Interventions Patient/Client Instruction: Educate patient on: Condition, Plan of Care, Risk Factors, Benefits of Fitness Program For the Purpose of:: To facilitate caregiver knowledge, To improve self management, To prevent re-injury, To improve ability to perform tasks related to life management, To improve tolerance to ADL's Therapeutic Exercise to Include: Strength training, Power training, Body mechanics, Postural training, Flexibilty training, Passive ROM, Active ROM, Dynamic Lumbar Stabilization, Nicol Exercises For the Purpose of:: To decrease pain, To decrease swelling/inflammation, To in crease ROM, To improve nutrient delivery to tissue, To increase oxygenation perfusion, To improve muscle performance and motor function, To improve ability to perform ADL's, To decrease soft tissue restriction, To increase flexibility/ROM Please do not hesitate to contact me at [phone] by phone or if you have questions or concerns regarding this new plan of care! Sincerely, PAU HinesT
== END 2020-08-14 19:00 | disposition home or self-care (01) ==
LOC: PT 09:00
PROVIDERS: PCP Family Medicine; Referring Provider Family Medicine; Visit Provider Family Medicine
DX: M54.9 Dorsalgia, unspecified (principal)
CPT/HCPCS: 97110; 97161; 97164

== ENCOUNTER → 2021-01-06 10:54 | Outpatient (CLI) | payer OTHER, SELFPAY ==
[2019-12-21 10:54] VITALS: BMI 28.9
[2021-01-06 10:57] LABS: Lyme Ab Screen Interpretation REF LAB
[2021-01-09 17:01] LABS: Lyme Scn Total Ab w/Rflx <0.91 ISR (0.00-0.90)
== END ==
LOC: MFPLAB 10:55
PROVIDERS: PCP Family Medicine; Visit Provider Family Medicine
DX: M25.50 Pain in unspecified joint (principal)
CPT/HCPCS: 36415; 86618

== ENCOUNTER → 2021-01-31 09:58 | Outpatient (CLI) | payer OTHER, SELFPAY ==
[2019-12-21 10:54] VITALS: BMI 28.9
--- NOTE | 2021-01-31 10:03 | RAD_ITS ---
STUDY: X-RAY - LEFT ELBOW REASON FOR EXAM: Male, 50 years old. ELBOW PAIN TECHNIQUE: 3 view(s) of the elbow. COMPARISON: None. FINDINGS: Normal visualized humerus, radius and ulna. Normal radiocapitellar and ulnotrochlear articulations. Joint effusion. Soft tissue swelling. RAD/Elbow min 3 Views IMPRESSION: Joint effusion and soft tissue swelling. Electronically Signed: Franklin Cerna MD at 13:20 EDT , Service support ,
== END ==
LOC: MTRAD 10:00
PROVIDERS: PCP Family Medicine; Referring Provider Family Medicine; Visit Provider Family Medicine
DX: M25.522 Pain in left elbow (principal)
CPT/HCPCS: 73080

== ENCOUNTER → 2021-02-07 11:10 | Outpatient (CLI) | payer OTHER, SELFPAY ==
[2019-12-21 10:54] VITALS: BMI 28.9
[2021-02-07 15:43] LABS: Uric Acid 4.2 mg/dL (3.5-7.2)
== END ==
LOC: MFPLAB 11:11
PROVIDERS: Family Medicine; PCP Family Medicine; Referring Provider Family Medicine; Visit Provider Family Medicine
DX: M25.522 Pain in left elbow (principal)
CPT/HCPCS: 36415; 84550

== ENCOUNTER → 2021-02-20 10:56 | Outpatient (CLI) | payer OTHER, SELFPAY ==
[2019-12-21 10:54] VITALS: BMI 28.9
--- NOTE | 2021-02-20 11:07 | MRI_ITS ---
STUDY: MRI BRAIN WITHOUT CONTRAST REASON FOR EXAM: Male, 50 years old. NUMBNESS TECHNIQUE: Standardized multiplanar fat and water weighted pulse sequences were obtained. COMPARISON: None. FINDINGS: Normal size of the ventricles and extra-axial spaces for the patient''s age. Normal white matter tracts of the supratentorial brain. There is no evidence for recent intracranial ischemia or other cause of cytotoxic edema on diffusion weighted imaging (DWI). Normal T2* images of the brain without demonstrated susceptibility artifact. There is no demonstrated hemosiderin stain. Normal bilateral basal ganglia. Normal thalami. There is no extra-axial fluid accumulation. Normal flow voids within the major intracranial circulation suggesting patency by spin echo criteria. Normal sella turcica, pituitary gland, infundibular stalk, optic chiasm and hypothalamus. Normal tectal plate and pineal gland. Normal midbrain, elfego and medulla. Normal cerebellum. Normal basal cisterns. Normal bilateral temporal bones. Normal bilateral internal auditory canals. No demonstrated orbital abnormality, within the constraints of a routine brain study. Normal visualized paranasal sinuses. Normal calvarium and skull base. Normal visualized soft tissue structures. Normal visualized upper cervical spine. MRI/Brain without Contrast IMPRESSION: Normal unenhanced MRI of the brain. Electronically Signed: Armando Stanton MD at 14:40 EDT Tel , Service support ,
== END ==
LOC: MRI 10:56
PROVIDERS: PCP Family Medicine; Referring Provider Family Medicine; Visit Provider Family Medicine
DX: R20.0 Anesthesia of skin (principal)
CPT/HCPCS: 70551

== ENCOUNTER → 2021-07-02 18:13 | Outpatient (CLI) | payer OTHER, SELFPAY ==
[2021-07-02 21:13] LABS: Probe Check PASS; Specimen Processing Control PASS
== END ==
PROVIDERS: PCP Family Medicine; Visit Provider Family Medicine
DX: U07.1 COVID-19 (principal)
CPT/HCPCS: 87635; U0005; U0003

== ENCOUNTER 2021-07-04 17:26 | Outpatient (CLI) | payer OTHER, SELFPAY ==
[2021-07-04 18:01] VITALS: BP 168/99; PULSE 75; RESP 16; TEMP 36.8; O2SAT 97; BMI 31.0
[2021-07-04] MEDS: 0.9% Saline Lock 10 ML Syringe IV (18:07)
[2021-07-04 18:40] VITALS: BP 176/99; PULSE 84; RESP 16; TEMP 36.7; O2SAT 96
[2021-07-04 19:40] VITALS: BP 168/99; PULSE 88; RESP 16; TEMP 36.9; O2SAT 98
== END 2021-07-04 19:55 | disposition home or self-care (01) ==
LOC: MS3OUT 17:26 → MS3 17:27
PROVIDERS: PCP Family Medicine; Referring Provider Nurse Practitioner Acute Care; Visit Provider Nurse Practitioner Acute Care
DX: Z23 Encounter for immunization (principal); U07.1 COVID-19
CPT/HCPCS: J7050; M0245; Q0245; A4216

== ENCOUNTER → 2021-07-07 11:08 | Outpatient (CLI) | payer OTHER, SELFPAY ==
[2021-07-07 15:44] LABS: ALB/GLOB Ratio 0.9 RATIO (0.9-2.4); AST(SGOT) 23 U/L (15-37); Alanine Aminotransfer ALT/SGPT 35 U/L (16-61); Albumin, Serum 3.1 g/dL (3.2-5.0); Alkaline Phosphatase 57 U/L (45-117); Anion Gap 7 (5-15); BUN 15 mg/dL (7-18); Calcium,Total 8.7 mg/dL (8.5-10.1); Chloride 108 mmol/L (98-107); Cholesterol 164 mg/dL (200); EST Glomerular Filtration Rate 84 mL/min (>60); Est Glom Filt Rate - Afr Amer 101 mL/min (>60); Estradiol 48.3 pg/mL; Globulin 3.6 g/dL (2.2-4.2); Glucose 69 mg/dL (74-106); High Density Lipoprotein 36 mg/dL; Potassium 4.1 mmol/L (3.5-5.1); Protein, Total 6.7 g/dL (6.4-8.2); Sodium Level 139 mmol/L (136-145); Triglycerides 79 mg/dL; Very Low Density Lipoprotein 16 mg/dL (5-40)
[2021-07-21 13:07] LABS: Testosterone, Free 20.48 ng/dL (5.00-21.00)
[2021-07-21 19:07] LABS: PSA, Free 0.19 ng/mL; PSA, Free % 21.1 % (.); PSA, Total Ultrasensitive 0.9 ng/mL (0.0-4.0); Testosterone, % Free 5.07 % (1.50-4.20); Testosterone, Total 404 ng/dL (264-916)
== END ==
LOC: MFPLAB 11:09
PROVIDERS: PCP Family Medicine; Visit Provider Family Medicine
DX: E29.1 Testicular hypofunction (principal); N42.9 Disorder of prostate, unspecified
CPT/HCPCS: 36415; 80053; 80061; 82670; 84153; 84154; 84402; 84403

== ENCOUNTER → 2021-07-16 10:49 | Outpatient (CLI) | payer OTHER, SELFPAY ==
[2021-07-20 17:07] LABS: Testosterone, Free 16.71 ng/dL (5.00-21.00)
[2021-07-21 08:58] LABS: Testosterone, % Free 3.13 % (1.50-4.20); Testosterone, Total 534 ng/dL (264-916)
== END ==
LOC: MFPLAB 10:51
PROVIDERS: PCP Family Medicine; Referring Provider Family Medicine; Visit Provider Internal Medicine Endocrinology, Diabetes & Metabolism
DX: E29.1 Testicular hypofunction (principal)
CPT/HCPCS: 36415; 84402; 84403

== ENCOUNTER 2021-08-12 07:58 | Day surgery (SDC) | payer OTHER, SELFPAY ==
[2021-08-12 08:19] VITALS: BP 153/108; PULSE 85; RESP 16; TEMP 36.8; O2SAT 95
[2021-08-12] MEDS: Lactated Ringers 1,000 ML 15 ML IV (08:28)
--- NOTE | 2021-08-12 09:24 | H&P.OPEN ---
HPI - General HPI Narrative SATINDER MACK, is a 50 M who presents for screening colonoscopy. The patient reports he is never had a colonoscopy in the past. He has no abdominal pain or blood in his stool. No family history of colon cancer. [facility] Medical History (Updated 08/12/21 @ 09:[address] Matt Hollis MD) Anxiety Back pain Chronic cough COVID-19 Depression Gastric reflux History of edema History of pain when walking HTN (hypertension) Hx of aneurysm Injury of back Injury of head and neck Migraine headache Non-smoker Tinnitus Wears glasses Home Medications cholecalciferol (vitamin D3) 50 mcg (2,000 unit) capsule 50 mcg PO DAILY 12/15/19 [History Last Taken Unknown] fish, borage, flaxseed oils-omega 3,6,9 cb #1 400 mg-400 mg-400 mg cap 1 cap PO DAILY 12/15/19 [History Last Taken Unknown] dmiqeelr-dekhdi-zad-eie-dho-nibc-horse 100 mg-100 mg-100 mg-125 mg tab 1 tab PO DAILY 12/15/19 [History Last Taken Unknown] Dolpa 1 tab PO DAILY 12/18/19 [History Last Taken Unknown] tryptophan 500 mg PO DAILY 12/18/19 [History Last Taken Unknown] tyrosine 500 mg PO DAILY 12/18/19 [History Last Taken Unknown] latanoprost 1 drp EACH EYE DAILY 07/04/21 [History Last Taken Unknown] timolol maleate 1 drp EACH EYE QHS 07/04/21 [History Last Taken Unknown] fluoxetine 10 mg PO DAILY 08/06/21 [History Last Taken Unknown] testosterone cypionate 200 mg IM QWEEK 08/06/21 [History Last Taken Unknown] Allergy/AdvReac Type Severity Reaction Status Date / Time citalopram [From Celexa] Allergy Mild Unknown Verified 08/12/21 08:18 sertraline [From Zoloft] Allergy Mild Unknown Verified 08/12/21 08:18 Family History Father Diabetes Uncle Cancer PANCREATIC Surgical History (Updated 08/06/21 @ 09:53 by Kaitlin Kaplan) Previous back surgery S/P left inguinal hernia repair S/P left knee surgery S/P right knee surgery S/P surgical manipulation of ankle joint S/P tonsillectomy Social History Smoking Status: Never smoker alcohol intake: current alcohol intake frequency: holidays/special occasions only Past Medical/Surgical History Planned Operation Planned Operative Procedure/s: COLONOSCOPY S.O.S: No Previous Hospitalizations/Surgeries HX Hospitalizations: No HX of Surgeries: back surgery Aneurysm repair right/left knee left ankle tonsillectomy Any Problems With Anesthesia: Yes (slow to awaken) You/Your Family Experience Fever (Hyperthermia) With Anes: No Cholinesterase deficiency: No Cardiovascular Hx Chest Pain within Last 2 months: No Hx of Irregular Heartbeat and/or Afib: No Hx Heart Attack: No Hx Congestive Heart Failure: No Hx Rheumatic Fever: No Hx Hypertension: No (WATCHING) Hx Internal Defibrillator: No Hx Pacemaker: No Hx Cardiac Catheterization: No Hx Cardiac Surgery/Stents/Etc.: No Hx Stress Test: No (ekg/dr curtis) Hx Pain in Legs when Walking/Leg Cramps: Yes (foot pain) Respiratory Chronic Cough: No HX of Shortness of Breath: No Hoarseness: No Hx Chronic Obstructive Pulmonary Disease (COPD): No Hx Asthma: No Hx Emphysema: No Hx Sleep Apnea: No (wears mouth vasiliy) CPAP: No Hx Respiratory Tract Infection/Cold (presently): No Do You Snore Loudly (louder than talking or can be heard): No Do You Often Feel Tired/ Fatigued/ Sleepy Dring Daytime?: No Has Anyone Observed You Stop Breathing During Sleep?: No Result (for STOP score): Negative Hx Smoking: No Smoking Status: Never smoker Gastrointestinal Hx Gastroesophageal Reflux: No (occ heartburn) Hx Gastrointestinal Disorders: No Hx Gastrointestinal Bleed: No Hx Ulcer: No Hx Hiatal Hernia: No Difficulty Chewing/Swallowing: No Special diet followed at home: No Hx Unplanned Weight Loss of 20#: No HX Unplanned Weight Gain of 20#: No Neurological Hx Seizures: No HX Syncope/Blackout Spells/Unconsciousness: No Hx Transient Ischemic Attacks (TIA): No Hx Multiple Sclerosis: No Hx Parkinson's Disease: No Hx Head/Neck Injury: Yes (multiple concussions) Hx Headaches: No Hx Back Injury/Pain: Yes (back surgery/prn pain) Recent Onset of Speech Difficulty: No Restless Legs: No Does patient have nerve stimulator: No Blood Disorder Hx Leukemia: No Bleeding Tendencies: No Hx Deep Vein Thrombosis: No Hx High Cholesterol: No Blood Transmitted Disease: No Hx Hepatitis: No Hx Cirrhosis: No Hx Anemia: No Hx Blood Disorders: No Genitourinary Hx Renal Disease: No Musculoskeletal Hx Arthritis: No Hx Rheumatoid Arthritis: No Hx Gout: No Recent Onset of an Orthopedic Problem: No Endocrine Hx Diabetes: No Thyroid Disease: No Hx Steroid Therapy: No Psycho/Social Hx Substance Use: No Hx Alcohol Use: No Hx Anxiety: Yes (supplements) Hx Depression: Yes (supplements) Mental Illness: No Hx Dementia: No Miscellaneous Hx Cancer: No Recent Exposure to Contagious Disease: No Hx of C-Diff: No Any Loose Teeth: No Allergies citalopram [From Celexa] Allergy (Mild, Verified 08/12/21 08:18) Unknown sertraline [From Zoloft] Allergy (Mild, Verified 08/12/21 08:18) Unknown Discharge Is Pt Admitted From a Senior Living, or a Intermediate: No After D/C, Where Do you Plan to Go: Return Home Vital Signs Vital Signs Vital Signs: 08/12/21 08:19 Temperature 98.2 F Temperature Source Temporal Pulse Rate 85 Respiratory Rate 16 Respiratory Pattern Normal Blood Pressure 153/108 H Blood Pressure Mean 123 Blood Pressure Source Monitor Blood Pressure Position Semi-Fowlers Blood Pressure Location Left Arm Pulse Ox 95 Oxygen Delivery Method Room Air Physical Exam Const alert and oriented x3 Resp normal respiratory effort and normal air movement Cardio regular rate and regular rhythm GI soft to palpation, non-tender and non-distended Assessment & Plan Assessment/Plan (1) Screen for colon cancer: PLAN: I explained endoscopy in detail to the patient. I explained the risks including but not limited to stroke or heart attack with anesthesia, perforation of the GI tract, bleeding, infection. I explained that any of these could necessitate further emergency surgery. The patient understands and all questions were answered sufficiently. The patient wishes to proceed with procedure. Matt Hollis MD Pager: [facility] [address] [place] [address], [address] [place] [address] Office: Surgery Risks - Colonoscopy Risks Include but are not Limited To: Risks include but are not limited to: Bleeding, perforation requiring further surgery, inability to complete colonoscopy requiring barium enema.
--- NOTE | 2021-08-12 09:52 | OP.CCLET_ITS ---
08/12/2021 César Billings [address] [place] [address] Re : Colonoscopy procedure for Kofi Sheth Dear Dr. Billings This procedure was performed on Thursday, August 12, 2021. My impressions and recommendations are as follows: Impressions : - The entire examined colon is normal on direct and retroflexion views. - No specimens collected. Recommendations : - Discharge patient to home. - Resume previous diet. - Continue present medications. - Repeat colonoscopy in 10 years for screening purposes. My findings are described in the full procedure note, which is enclosed. If I can be of further assistance, please feel free to contact me at Doctor phone number(s): , Work: . Sincerely, Matt Hollis MD 08/12/2021 9:51:20 AM This report has been signed electronically.
--- NOTE | 2021-08-12 09:52 | OP.COLON_ITS ---
Patient Name: Kofi Sheth Procedure Date: 08/12/2021 9:27 AM Date of : 1970 Age: 50 Procedure: Colonoscopy Indications: Screening for colorectal malignant neoplasm Providers: Matt Hollis MD Medicines: Monitored Anesthesia Care Patient Profile: This is a 50 year old male. Refer to note in patient chart for documentation of history and physical. Last Colonoscopy: none. The patient's first colonoscopy is today. Complications: No immediate complications. Procedure: Pre-Anesthesia Assessment: - Prior to the procedure, a History and Physical was performed, and patient medications and allergies were reviewed. The patient's tolerance of previous anesthesia was also reviewed. The risks and benefits of the procedure and the sedation options and risks were discussed with the patient. All questions were answered, and informed consent was obtained. Prior Anticoagulants: The patient has taken no previous anticoagulant or antiplatelet agents. After reviewing the risks and benefits, the patient was deemed in satisfactory condition to undergo the procedure. After I obtained informed consent, the scope was passed under direct vision. Throughout the procedure, the patient's blood pressure, pulse, and oxygen saturations were monitored continuously. The pediatric colonoscope was introduced through the anus and advanced to the cecum, identified by appendiceal orifice and ileocecal valve. The colonoscopy was performed without difficulty. The patient tolerated the procedure well. The quality of the bowel preparation was good. Scope In: 9:35:15 AM Scope Withdrawal Time 0 hours 5 minutes 22 seconds Scope Out: 9:47:03 AM Total Procedure Duration Time 0 hours 11 minutes 48 seconds Findings: The entire examined colon appeared normal on direct and retroflexion views. Impression: - The entire examined colon is normal on direct and retroflexion views. - No specimens collected. Recommendation: - Discharge patient to home. - Resume previous diet. - Continue present medications. - Repeat colonoscopy in 10 years for screening purposes. Procedure Code(s): --- Professional --- 52999, Colonoscopy, flexible; diagnostic, including collection of specimen(s) by brushing or washing, when performed (separate procedure) Diagnosis Code(s): --- Professional --- Z12.11, Encounter for screening for malignant neoplasm of colon CPT copyright 2017 [employer]. All rights reserved. The codes documented in this report are preliminary and upon manager building review may be revised to meet current compliance requirements. Matt Hollis MD 08/12/2021 9:51:20 AM This report has been signed electronically. Number of Addenda: 0 Note Initiated On: 08/12/2021 9:27 AM
[2021-08-12 09:54] VITALS: BP 108/77; BP 153/108; PULSE 71; RESP 18; TEMP 35.8; O2SAT 94
[2021-08-12 10:00] VITALS: BP 109/87; BP 153/108; PULSE 68; RESP 20; O2SAT 94
[2021-08-12 10:04] VITALS: BP 121/88; BP 153/108; PULSE 70; RESP 18; O2SAT 94
[2021-08-12 10:06] VITALS: BP 127/93; BP 153/108; PULSE 64; RESP 18; TEMP 36; O2SAT 94
[2021-08-12 10:45] VITALS: BP 153/108
== END 2021-08-12 10:45 | disposition home or self-care (01) ==
LOC: EN 07:59 → AC 07:59
PROVIDERS: PCP Family Medicine; Referring Provider Family Medicine; Visit Provider Surgery
PROC: 0DJD8ZZ Inspection of Lower Intestinal Tract, Via Natural or Artificial Opening Endoscopic (ICD-10-PCS; CPT 45378; principal; 2021-08-12 08:55)
DX: Z12.11 Encounter for screening for malignant neoplasm of colon (principal); F32.A Depression, unspecified; F41.9 Anxiety disorder, unspecified; Z79.899 Other long term (current) drug therapy; Z86.16 Personal history of COVID-19
CPT/HCPCS: 45378; J7120; J2405

== ENCOUNTER 2021-11-03 10:08 | Outpatient (CLI) | payer OTHER, SELFPAY ==
[2021-11-03 12:08] LABS: Absolute Lymphocyte Count 0.61 X10^3/uL (0.83-4.51); Absolute Neutrophil Count 5.5 X10^3/uL (2.0-7.7); Basophil# 0.05 X10^3/uL; Basophil% 0.7 % (0-1); Eosinophil# 0.04 X10^3/uL; Eosinophils% 0.6 % (0-5); Hemoglobin 18.5 g/dL (13.0-16.5); Lymphocyte # 0.61 X10^3/ul (0.83-4.51); Lymphocyte % 8.7 % (19-41); Mean Corp Hgb Conc 32.7 g/dL (32-36); Mean Corpuscular Hgb 32.3 pg (27.0-32.0); Mean Corpuscular Volume 98.8 fL (80-94); Mean Platelet Vol. 11.1 fl (6.2-12.0); Monocyte# 0.75 X10^3/uL; Monocyte% 10.6 % (0-10); NRBC Flagged by Analyzer 0 % (0-5); Neutrophil # 5.48 X10^3/uL (2.7-7.7); Neutrophil % 77.7 % (47-70); Platelet Count 154 K/mm3 (150-450); RBC Distribution Width CV 14.1 % (11.6-14.6); RBC Distribution Width SD 51.9 fl (35.1-43.9); Red Blood Count 5.73 M/mm3 (4.6-6.2); White Blood Count 7.1 K/mm3 (4.4-11.0)
[2021-11-03 12:15] LABS: Vitamin D,25 Hydroxy 79.9 ng/mL
[2021-11-03 12:26] LABS: Hematocrit 56.6 % (40-54)
[2021-11-03 12:29] LABS: ALB/GLOB Ratio 1.1 RATIO (0.9-2.4); AST(SGOT) 27 U/L (15-37); Alanine Aminotransfer ALT/SGPT 46 U/L (16-61); Albumin, Serum 3.5 g/dL (3.2-5.0); Alkaline Phosphatase 60 U/L (45-117); Anion Gap 3 (5-15); BUN 15 mg/dL (7-18); Calcium,Total 9.1 mg/dL (8.5-10.1); Chloride 108 mmol/L (98-107); Cholesterol 158 mg/dL (200); Creatinine, Serum 1.15 mg/dL (0.70-1.30); EST Glomerular Filtration Rate 71 mL/min (>60); Est Glom Filt Rate - Afr Amer 86 mL/min (>60); Ferritin 21 ng/mL (26-388); Globulin 3.1 g/dL (2.2-4.2); Glucose 74 mg/dL (74-106); High Density Lipoprotein 50 mg/dL; Iron 74 ug/dL (65-175); Iron Binding Capacity,Total 432 ug/dL (250-450); PERCENT IRON SATURATION 17.1 % (15.0-55.0); Potassium 3.9 mmol/L (3.5-5.1); Protein, Total 6.6 g/dL (6.4-8.2); Sodium Level 140 mmol/L (136-145); T4 Free Direct 0.52 ng/dL (0.76-1.46); Thyroid Stim Hormone (TSH) 1.41 uIU/mL (0.358-3.74); Triglycerides 53 mg/dL; Very Low Density Lipoprotein 11 mg/dL (5-40)
[2021-11-04 13:02] LABS: Pathologist Review Reviewed
[2021-11-14 12:08] LABS: Aldosterone, Serum < 1.0 ng/dL (0.0-30.0); Testosterone, % Free 4.72 % (1.50-4.20); Testosterone, Free 21.57 ng/dL (5.00-21.00)
[2021-11-14 13:17] LABS: PSA, Free 0.16 ng/mL; PSA, Free % 26.7 % (.); PSA, Total Ultrasensitive 0.6 ng/mL (0.0-4.0); Renin, Plasma 1.451 ng/mL/hr (0.167-5.380); Testosterone, Total 457 ng/dL (264-916)
== END 2021-11-03 23:59 | disposition home or self-care (01) ==
LOC: MFPLAB 10:09
PROVIDERS: PCP Family Medicine; Referring Provider Family Medicine; Visit Provider Internal Medicine Endocrinology, Diabetes & Metabolism
DX: E29.1 Testicular hypofunction (principal); E04.2 Nontoxic multinodular goiter; E55.9 Vitamin D deficiency, unspecified; I16.0 Hypertensive urgency; R79.89 Other specified abnormal findings of blood chemistry; E66.9 Obesity, unspecified
CPT/HCPCS: 36415; 80053; 80061; 82088; 82306; 82533; 82728; 83540; 83550; 84153; 84154; 84244; 84402; 84403; 84439; 84443; 85025

== ENCOUNTER 2021-11-14 09:03 | Outpatient (CLI) | payer OTHER, SELFPAY | END 2021-11-14 23:59 | disposition home or self-care (01) | LOC: MTLAB 09:05 | PROVIDERS: PCP Family Medicine; Referring Provider Internal Medicine Endocrinology, Diabetes & Metabolism; Visit Provider Internal Medicine Endocrinology, Diabetes & Metabolism | DX: E27.9 Disorder of adrenal gland, unspecified (principal) | CPT/HCPCS: 36415; 82533 ==

== ENCOUNTER 2021-11-24 08:55 | Outpatient (CLI) | payer OTHER, SELFPAY ==
[2021-12-08 17:02] LABS: Cortisol, Free 24Ur 753 ug/24 hr (5-64); Cortisol, Urinary Free 262 ug/L (Undefined)
== END 2021-11-24 23:59 | disposition home or self-care (01) ==
LOC: LABSPEC 08:56
PROVIDERS: PCP Family Medicine; Referring Provider Family Medicine; Visit Provider Internal Medicine Endocrinology, Diabetes & Metabolism
DX: E27.9 Disorder of adrenal gland, unspecified (principal)
CPT/HCPCS: 81050; 82530; 82570

== ENCOUNTER 2021-11-28 08:35 | Outpatient (CLI) | payer OTHER, SELFPAY ==
[2021-11-28 10:06] LABS: Absolute Lymphocyte Count 0.88 X10^3/uL (0.83-4.51); Absolute Neutrophil Count 5.8 X10^3/uL (2.0-7.7); Basophil# 0.03 X10^3/uL; Basophil% 0.4 % (0-1); Eosinophil# 0.04 X10^3/uL; Eosinophils% 0.5 % (0-5); Hematocrit 52.7 % (40-54); Hemoglobin 17.7 g/dL (13.0-16.5); Lymphocyte # 0.88 X10^3/ul (0.83-4.51); Lymphocyte % 11.7 % (19-41); Mean Corp Hgb Conc 33.6 g/dL (32-36); Mean Corpuscular Hgb 32.5 pg (27.0-32.0); Mean Corpuscular Volume 96.7 fL (80-94); Mean Platelet Vol. 11.2 fl (6.2-12.0); NRBC Flagged by Analyzer 0 % (0-5); Neutrophil # 5.83 X10^3/uL (2.7-7.7); Neutrophil % 77.5 % (47-70); Platelet Count 195 K/mm3 (150-450); RBC Distribution Width CV 12.8 % (11.6-14.6); RBC Distribution Width SD 45.4 fl (35.1-43.9); Red Blood Count 5.45 M/mm3 (4.6-6.2); White Blood Count 7.5 K/mm3 (4.4-11.0)
[2021-11-28 10:18] LABS: Anion Gap 6 (5-15); BUN 31 mg/dL (7-18); BUN/Creat Ratio 28.4 RATIO (10-20); Calcium,Total 8.5 mg/dL (8.5-10.1); Chloride 110 mmol/L (98-107); Creatinine, Serum 1.09 mg/dL (0.70-1.30); EST Glomerular Filtration Rate 76 mL/min (>60); Est Glom Filt Rate - Afr Amer 92 mL/min (>60); Glucose 92 mg/dL (74-106); Potassium 3.7 mmol/L (3.5-5.1); Sodium Level 142 mmol/L (136-145)
[2021-11-28 10:35] LABS: Vitamin B12 509 pg/mL (211-911)
== END 2021-11-28 23:59 | disposition home or self-care (01) ==
LOC: MFPLAB 08:35
PROVIDERS: PCP Family Medicine; Referring Provider Family Medicine; Visit Provider Family Medicine
DX: T14.8XXA Other injury of unspecified body region, initial encounter (principal); R79.89 Other specified abnormal findings of blood chemistry; R43.9 Unspecified disturbances of smell and taste; I10 Essential (primary) hypertension
CPT/HCPCS: 36415; 80048; 82607; 84403; 85025

== ENCOUNTER 2021-12-03 16:57 | Outpatient (CLI) | payer OTHER, SELFPAY ==
[2021-12-03 18:02] LABS: Absolute Lymphocyte Count 0.83 X10^3/uL (0.83-4.51); Basophil# 0.05 X10^3/uL; Basophil% 0.5 % (0-1); Eosinophil# 0.05 X10^3/uL; Eosinophils% 0.5 % (0-5); Hematocrit 53.8 % (40-54); Hemoglobin 17.8 g/dL (13.0-16.5); Lymphocyte # 0.83 X10^3/ul (0.83-4.51); Lymphocyte % 8.6 % (19-41); Mean Corp Hgb Conc 33.1 g/dL (32-36); Mean Corpuscular Hgb 32.7 pg (27.0-32.0); Mean Corpuscular Volume 98.9 fL (80-94); Mean Platelet Vol. 11.3 fl (6.2-12.0); Monocyte# 0.51 X10^3/uL; Monocyte% 5.3 % (0-10); NRBC Flagged by Analyzer 0 % (0-5); Neutrophil % 83.2 % (47-70); Platelet Count 188 K/mm3 (150-450); RBC Distribution Width CV 12.6 % (11.6-14.6); RBC Distribution Width SD 45.9 fl (35.1-43.9); Red Blood Count 5.44 M/mm3 (4.6-6.2); White Blood Count 9.6 K/mm3 (4.4-11.0)
== END 2021-12-03 23:59 | disposition home or self-care (01) ==
LOC: MTLAB 16:58
PROVIDERS: PCP Family Medicine; Referring Provider Internal Medicine Endocrinology, Diabetes & Metabolism; Visit Provider Internal Medicine Endocrinology, Diabetes & Metabolism
DX: E04.9 Nontoxic goiter, unspecified (principal); D75.1 Secondary polycythemia
CPT/HCPCS: 36415; 84439; 84443; 85025

== ENCOUNTER → 2021-12-15 | Outpatient (CLI) | payer OTHER, SELFPAY ==
[2021-12-15 12:02] LABS: T4 Free Direct 0.59 ng/dL (0.76-1.46)
== END | disposition home or self-care (01) ==
LOC: LABSPEC 08:13 → MTLAB 08:14
PROVIDERS: PCP Family Medicine; Referring Provider Physician Assistant Medical; Visit Provider Physician Assistant Medical
DX: E24.8 Other Cushing's syndrome (principal); E29.1 Testicular hypofunction
CPT/HCPCS: 36415; 82024; 82533; 84146; 84439

== ENCOUNTER → 2021-12-24 | Outpatient (CLI) | payer OTHER, SELFPAY ==
[2021-12-24 13:14] LABS: Anion Gap 6 (5-15); BUN 23 mg/dL (7-18); BUN/Creat Ratio 18.9 RATIO (10-20); Chloride 105 mmol/L (98-107); Creatinine, Serum 1.22 mg/dL (0.70-1.30); EST Glomerular Filtration Rate 67 mL/min (>60); Est Glom Filt Rate - Afr Amer 81 mL/min (>60); Glucose 161 mg/dL (74-106); Potassium 4.2 mmol/L (3.5-5.1); Sodium Level 142 mmol/L (136-145)
== END | disposition home or self-care (01) ==
LOC: MTLAB 08:22
PROVIDERS: PCP Family Medicine; Referring Provider Internal Medicine Endocrinology, Diabetes & Metabolism; Visit Provider Internal Medicine Endocrinology, Diabetes & Metabolism
DX: E24.8 Other Cushing's syndrome (principal); E27.9 Disorder of adrenal gland, unspecified
CPT/HCPCS: 36415; 80048; 82533

== ENCOUNTER → 2022-01-14 | Outpatient (CLI) | payer OTHER, SELFPAY ==
--- NOTE | 2022-01-14 08:34 | MRI_ITS ---
EXAM: MR HEAD WITHOUT AND WITH INTRAVENOUS CONTRAST CLINICAL INDICATION: Hogeland''s syndrome. TECHNIQUE: Multiplanar and multisequence MR images of the brain were obtained without and with intravenous contrast. This report was created using [employer] report Toolmeet technology. CONTRAST: IV 20ML CLARISCAN COMPARISON: MRI brain without contrast 02/20/2021. FINDINGS: BRAIN AND EXTRA-AXIAL SPACES: Prominent perivascular space in the region of the left anterior commissure is unchanged. No intra- or extra-axial hemorrhage. SELLA: Large minimally enhancing mass in the anterior pituitary gland measuring 2.2 x 1.9 cm in the sagittal projection (previously 1.4 x 1.2 cm) and 2 x 2.1 cm in the coronal projection (previously 1.8 x 1.4 cm). This accounts for the marked enlargement of the sella turcica and caudal protrusion of the mass into the sphenoid sinus and mild bulging into suprasellar cistern but no elevation or displacement of the optic chiasm. The mass partially encases the cavernous segment of the right internal carotid artery. There is no extension into the left cavernous sinus. AUDITORY SYSTEM: Unremarkable. The internal auditory canals are patent. BONES/JOINTS: Unremarkable. No discrete lytic or blastic abnormalities. SINUSES: See above. MASTOID AIR CELLS: Unremarkable as visualized. Clear. ORBITS: Unremarkable as visualized. Both globes, extraocular muscles, optic nerves and retrobulbar fat appear unremarkable. VASCULATURE: See above. 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 This has increased in size since 02/20/2021. The dimensions are given in the body of report. N.B. : The above Results were Read Back by Enoch Yeboah MD to Johnny Jose MD, and understanding confirmed on 01/14/2022 11:29:13 (ET). Electronically Signed: Enoch Yeboah MD at 11:18 EDT ,
== END | disposition home or self-care (01) ==
PROVIDERS: PCP Family Medicine; Visit Provider Internal Medicine Endocrinology, Diabetes & Metabolism
DX: E24.8 Other Cushing's syndrome (principal)
CPT/HCPCS: 70553; A9575

== ENCOUNTER → 2022-02-05 | Outpatient (CLI) | payer OTHER, SELFPAY ==
[2022-02-05 15:20] LABS: Hematocrit 45.8 % (40-54); Hemoglobin 15.7 g/dL (13.0-16.5)
[2022-02-05 15:52] LABS: ALB/GLOB Ratio 1.2 RATIO (0.9-2.4); AST(SGOT) 27 U/L (15-37); Alanine Aminotransfer ALT/SGPT 56 U/L (16-61); Albumin, Serum 3.6 g/dL (3.2-5.0); Alkaline Phosphatase 58 U/L (45-117); Anion Gap 10 (5-15); BUN 24 mg/dL (7-18); BUN/Creat Ratio 21.2 RATIO (10-20); Calcium,Total 8.9 mg/dL (8.5-10.1); Chloride 107 mmol/L (98-107); Creatinine, Serum 1.13 mg/dL (0.70-1.30); EST Glomerular Filtration Rate 73 mL/min (>60); Est Glom Filt Rate - Afr Amer 88 mL/min (>60); Follicle Stimulating Hormone 7.4 mIU/mL; Glucose 196 mg/dL (74-106); Luteinizing Hormone 2.1 mIU/mL; Potassium 3.7 mmol/L (3.5-5.1); Prolactin 7.2 ng/mL; Protein, Total 6.6 g/dL (6.4-8.2); Sodium Level 140 mmol/L (136-145); T4 Free Direct 1.17 ng/dL (0.76-1.46); Thyroid Stim Hormone (TSH) 0.04 uIU/mL (0.358-3.74)
[2022-02-13 12:08] LABS: Insulin Like Growth Factor 174 ng/mL (74-255); Testosterone, % Free 3.49 % (1.50-4.20); Testosterone, Free 1.88 ng/dL (5.00-21.00)
[2022-02-13 17:43] LABS: Growth Hormone 0.2 ng/mL (0.0-10.0); Testosterone, Total 54 ng/dL (264-916)
== END | disposition home or self-care (01) ==
LOC: MTLAB 13:17
PROVIDERS: PCP Family Medicine; Referring Provider Internal Medicine Endocrinology, Diabetes & Metabolism; Visit Provider Internal Medicine Endocrinology, Diabetes & Metabolism
DX: E24.0 Pituitary-dependent Cushing's disease (principal); E03.9 Hypothyroidism, unspecified; E29.1 Testicular hypofunction
CPT/HCPCS: 36415; 80053; 83001; 83002; 83003; 84146; 84305; 84402; 84403; 84439; 84443; 85014; 85018

== ENCOUNTER → 2022-03-10 | Outpatient (CLI) | payer OTHER, SELFPAY ==
[2022-03-10 10:26] LABS: Absolute Lymphocyte Count 1.55 X10^3/uL (0.83-4.51); Absolute Neutrophil Count 3.5 X10^3/uL (2.0-7.7); Basophil# 0.07 X10^3/uL; Basophil% 1.1 % (0-1); Eosinophil# 0.33 X10^3/uL; Eosinophils% 5.3 % (0-5); Hematocrit 42.8 % (40-54); Hemoglobin 14.1 g/dL (13.0-16.5); Lymphocyte # 1.55 X10^3/ul (0.83-4.51); Lymphocyte % 24.8 % (19-41); Mean Corp Hgb Conc 32.9 g/dL (32-36); Mean Corpuscular Hgb 34.2 pg (27.0-32.0); Mean Corpuscular Volume 103.9 fL (80-94); Mean Platelet Vol. 10.6 fl (6.2-12.0); Monocyte# 0.74 X10^3/uL; Monocyte% 11.8 % (0-10); NRBC Flagged by Analyzer 0 % (0-5); Neutrophil # 3.47 X10^3/uL (2.7-7.7); Neutrophil % 55.6 % (47-70); Platelet Count 260 K/mm3 (150-450); RBC Distribution Width CV 12.8 % (11.6-14.6); Red Blood Count 4.12 M/mm3 (4.6-6.2); White Blood Count 6.3 K/mm3 (4.4-11.0)
[2022-03-10 10:42] LABS: Hemoglobin A1c 6.4 % (3.8-5.6)
[2022-03-10 11:16] LABS: ALB/GLOB Ratio 1.2 RATIO (0.9-2.4); AST(SGOT) 20 U/L (15-37); Alanine Aminotransfer ALT/SGPT 53 U/L (16-61); Albumin, Serum 3.5 g/dL (3.2-5.0); Alkaline Phosphatase 66 U/L (45-117); Anion Gap 8 (5-15); BUN 17 mg/dL (7-18); BUN/Creat Ratio 15.6 RATIO (10-20); Calcium,Total 9.2 mg/dL (8.5-10.1); Chloride 106 mmol/L (98-107); Cholesterol 190 mg/dL (200); Creatinine, Serum 1.09 mg/dL (0.70-1.30); EST Glomerular Filtration Rate 76 mL/min (>60); Est Glom Filt Rate - Afr Amer 92 mL/min (>60); Glucose 94 mg/dL (74-106); High Density Lipoprotein 52 mg/dL; Potassium 4.1 mmol/L (3.5-5.1); Protein, Total 6.5 g/dL (6.4-8.2); Sodium Level 139 mmol/L (136-145); Thyroid Stim Hormone (TSH) 2.89 uIU/mL (0.358-3.74); Triglycerides 110 mg/dL; Very Low Density Lipoprotein 22 mg/dL (5-40)
[2022-03-11 09:43] LABS: T4 Free Direct 0.84 ng/dL (0.76-1.46)
[2022-03-11 09:50] LABS: Microalbumin,Random Urine 8.9 mg/L (NO RANGE EST.); Microalbumin:Creatinine Ratio 9.1 mg/g CRE (<30 mg/g CRE)
== END | disposition home or self-care (01) ==
LOC: MFPLAB 08:57
PROVIDERS: PCP Family Medicine; Referring Provider Family Medicine; Visit Provider Internal Medicine Endocrinology, Diabetes & Metabolism
DX: E24.0 Pituitary-dependent Cushing's disease (principal); E11.65 Type 2 diabetes mellitus with hyperglycemia; E78.5 Hyperlipidemia, unspecified; E03.9 Hypothyroidism, unspecified; R30.0 Dysuria
CPT/HCPCS: 36415; 80053; 80061; 82043; 82570; 83036; 84439; 84443; 85025; 87086

== ENCOUNTER → 2024-01-06 | Outpatient (CLI) | payer OTHER, SELFPAY ==
--- NOTE | 2024-01-06 16:51 | RAD_ITS ---
INDICATION: l leg weakness EXAMINATION/TECHNIQUE: X-RAY - XR Spine Lumbar Comp W/ Bending Min 6 Views: 6 views COMPARISON: Hip radiograph on same day FINDINGS: VERTEBRAE: Preserved vertebral body height. No fracture or acute compression deformity. Diffuse lumbar facet arthropathy most prominent L3-4, L4-5, L5-S1 with degenerative grade 1 retrolisthesis L2 on L3, without change on flexion or extension. Mild diffuse endplate degenerative change in the lower lumbar spine. Preservation of the normal lumbar lordosis. DISCS: Diffuse disc height loss in the lower lumbar spine most prominent at L3-4 and L4-5.. INCLUDED ABDOMEN: Right upper quadrant vascular coils. Included bowel gas pattern is non-obstructive. RAD/L/S Spine w Bend Min 6 Vw IMPRESSION: No evidence of lumbar spinal fracture. Moderate diffuse spondylosis, most prominent at L3-4 and L4-5 Electronically Signed: Rudolph Martinez MD at 18:50 EDT ,
--- NOTE | 2024-01-06 16:51 | RAD_ITS ---
INDICATION: loss motion, pain EXAMINATION/TECHNIQUE: X-RAY - XR Hip Unilateral with Pelvis when performed; 2-3 Views COMPARISON: No relevant prior comparison study available FINDINGS: PELVIC BONES: No displaced fracture, destructive or sclerotic lesions. Note that overlapping bowel shadows may however obscure fine detail. Sacroiliac joints are unremarkable. No widening of the pubic symphysis. HIPS: Normal left hip alignment. Severe left hip joint space loss with femoral acetabular subchondral sclerosis and mild subchondral cystic change. No visible fracture or subchondral collapse. Normal right hip alignment with preserved joint spacing and minimal osteophyte formation. SOFT TISSUES: No soft tissue swelling or gas. RAD/HIP, UNI W/ Pelvis 2-3 Views IMPRESSION: Severe left hip osteoarthritis. Electronically Signed: Rudolph Martinez MD at 22:55 EDT ,
[2024-01-06 17:49] LABS: Erythrocyte Sedimentation Rate 13 mm/hr (0-20)
[2024-01-06 18:23] LABS: Anion Gap 10 (5-15); BUN 16 mg/dL (7-18); BUN/Creat Ratio 15.7 RATIO (10-20); Calcium,Total 9.6 mg/dL (8.5-10.1); Chloride 105 mmol/L (98-107); Creatinine, Serum 1.02 mg/dL (0.70-1.30); EST Glomerular Filtration Rate 81 mL/min (>60); Est Glom Filt Rate - Afr Amer 98 mL/min (>60); Glucose 148 mg/dL (74-106); Potassium 3.7 mmol/L (3.5-5.1); Sodium Level 136 mmol/L (136-145); Thyroid Stim Hormone (TSH) 0.03 uIU/mL (0.358-3.74)
[2024-01-07 14:40] LABS: Free T3 3.1 pg/mL (2.18-3.98); T4 Free Direct 1.39 ng/dL (0.76-1.46)
== END | disposition home or self-care (01) ==
PROVIDERS: PCP Family Medicine; Referring Provider Family Medicine; Visit Provider Family Medicine
DX: M25.552 Pain in left hip (principal); E03.9 Hypothyroidism, unspecified; M62.81 Muscle weakness (generalized); E24.9 Cushing's syndrome, unspecified
CPT/HCPCS: 36415; 72114; 73502; 80048; 82533; 84439; 84443; 84481; 85652

== ENCOUNTER 2024-02-24 10:30 | Outpatient (RCR) | payer OTHER, SELFPAY ==
--- NOTE | 2024-01-17 14:06 | HP.PTEVAL_ITS ---
Patient's Visit Information Visit Information Visit Information: SATINDER MACK is a 53 year old M referred to Physical Therapy by Dr. Anshu Billings MD with a diagnosis of LEFT HIP PAIN. Date of Evaluation: 01/17/24 Physical Therapist: Brennon Cobos PT, Cert MDT, OCS Visit Plan Frequency: 2x /Week Duration: 4 Weeks Plan: HIP SEVERE ARTHROSIS PRECAUTION: CUSHIONING DISEASE PT INTERVENTIONS ROM ,STRENGTHENING HIP ,STRENGTHENING HIP/QUADS/HAMS ,ACTIVITY MODIFICATION ,CORE STRENGTHENING AND FUNCTIONAL STRENGTHENING Subjective Subjective: This 53 y/o male presents to physical therapy with left hip pain. Patient has had left hip pain for 8 months intermittent . Patient has h/o back surgery discectomy 2007. Patient seen DR x-rays hip showed severe arthrosis and lumbar Moderate diffuse spondylosis, most prominent at L3-4 and L4-5. Patient pain located groin region in /out of car. Patient pain aggravating factors walking/standing ,difficulty squats /kneel . Patient stairs are painful and difficult. Patient getting out of chair. Patient has complexity issue has derik disease and chemotherapy . Patient has pituitary tumor required surgery and chemotherapy and radiation.. Patient loss muscle mass and weakness. Denies paresthesia/tingling . Patient sleeping okay. Patient condition affects ADLS ,housework tasks and job demands. Patient goals to to get stronger . SOCIAL: VOCATION: Car business Pain Left Hip: Pain Intensity (Out of 10): 3 Pain Intensity Range: 9 Objective Objective: POSTURE:mild forward posture ,trunk flexed PALAPTION: unremarkable NEURO : denies paresthesia/tingling ,reflexes L3-4,L4-5 ,L5-S1 1/3 GAIT: ambulates with antalgic gait left side slow alonzo mild forward posture PROM HIP: flexion 100 degrees ,hip IR 0 ,hip abduction 35 degrees MMT: (peak force ) hip flexion 16.5 ,abduction 0 ,quads 18.1 ,hamstrings 17.1 LUMBAR ROM: flexion WFL ,extension severe loss ,side glides mod loss FLEXABLITY: hamstrings WFL Special Tests L/S Slump test left side: Negative L/S Slump test right side: Negative L/S Left Straight Leg Raise: Negative L/S Right Straight Leg Raise: Negative L Hip Scour: Positive L Hip Quadrant - Intraarticular Pathology: Negative L Hip JACEY - Intraarticular Pathology: Negative L Hip Trendelenberg - Glut Medius: Positive Balance/Special Test Scores Lower Extremity Functional Score: 24 Goals Goal 1:: Patient to be I with HEP for hip Goal Time Frame: 4-6 Weeks Goal 2:: Patient to improve hip AROM by 10-15 degrees to improve to function and stairs Goal Time Frame: 4-6 Weeks Goal 3:: Patient to improve peak force quads/hams/hip by 10-15 # strength to improve gait and function Goal Time Frame: 4-6 Weeks Goal 4:: Patient to demonstrate 50% improvement with less pain and improved function Goal Time Frame: 4-6 Weeks Goal 5:: Patient to improve LFES score by 5 -10 points to improve QOL and function Goal Time Frame: 4-6 Weeks Rehabilitation Potential Physical Therapy Diagnosis: Patient has severe orthosis hip with pain ,poor ROM ,weakness impairs walking and standing and ADLS along with contributing factors influences condition thus benefit from skilled PT Rehabilitation Potential: Good Anticipated Interventions Patient/Client Instruction: Educate patient on: Condition and Plan of Care For the Purpose of:: To decrease pain, To improve nutrient delivery to tissue, To increase oxygenation perfusion, To improve ability to perform ADL's, To decrease level of supervision to perform tasks, To improve gait and locomotor functions, To decrease soft tissue restriction, To increase flexibility/ROM, To improve balance and To improve tolerance to ADL's Therapeutic Exercise to Include: Strength training, Endurance training, Balance training, Postural training, Flexibilty training, Passive ROM, Active ROM and Dynamic Lumbar Stabilization Comment: QUADS/HAMS/HIP For the Purpose of:: To decrease pain, To increase ROM, To improve muscle performance and motor function, To improve ability to perform ADL's, To increase tolerance to activity/condition/position, To improve ability of physical actions for home/community/work/leisure, To improve health of tissue, To decrease soft tissue restriction, To increase flexibility/ROM, To improve endurance, To improve balance, To reduce risk of recurrence and To improve tolerance to ADL's Manual Therapy Techniques to Include: Mobilization Comment: HIP JOINT For the Purpose of:: To decrease pain, To increase ROM and To improve nutrient delivery to tissue Text: Thank you for the opportunity to evaluate your patient. For Medicare and Medicare HMO plans, please review the plan of care and approve it. It will need to be FAXED BACK to us at [phone] for Medicare purposes. For Medicare only, by signing this I certify the plan of care. Please let me know if there are questions or concerns regarding this plan of care. Physician Signature: Date:
--- NOTE | 2024-02-24 11:46 | HP.PTDCSUM ---
Discharge Summary D/C summary: It has been my pleasure to treat SATINDER MACK referred by Dr. Anshu Billings MD, with the diagnosis of LEFT HIP PAIN for a total of 9 visit(s). Discharge Date: 02/24/24 Please see the following information for a summary of their discharge status. Subjective Subjective: Patient would like to continue to fight hormone problems Pain Left Hip: Pain Intensity (Out of 10): 5 Overall Improvement % Improvement: 30 Objective Objective/Function: POSTURE:mild forward posture ,trunk flexed PALAPTION: unremarkable NEURO : denies paresthesia/tingling ,reflexes L3-4,L4-5 ,L5-S1 1/3 GAIT: ambulates with antalgic gait left side slow alonzo mild forward posture PROM HIP: flexion 100 degrees ,hip IR 0 ,hip abduction 35 degrees MMT: (peak force ) hip flexion 31.7 ,abduction 25.,quads 34 ,hamstrings 36.1 LUMBAR ROM: flexion WFL ,extension severe loss ,side glides mod loss FLEXABLITY: hamstrings WFL Goals Goal 1:: Patient to be I with HEP for hip Goal Progress: Goal Met Goal 2:: Patient to improve hip AROM by 10-15 degrees to improve to function and stairs Goal Progress: Progressing Goal 3:: Patient to improve peak force quads/hams/hip by 10-15 # strength to improve gait and function Goal Progress: Progressing Goal 4:: Patient to demonstrate 50% improvement with less pain and improved function Goal Progress: Progressing Goal 5:: Patient to improve LFES score by 5 -10 points to improve QOL and function Goal Progress: Goal Met Plan Plan: D/C TO HEP D/C Information Discharge Comments: HEP d/c sentence: If there are questions or concerns regarding this patient's physical therapy, please feel free to call me at [phone]. Thank you for the referral of this patient. Sincerely, Brennon Cobos, PT, Cert MDT, OCS Balance/Gait/Functional tests Balance/Special Test Scores Lower Extremity Functional Score: 37 Improvement % Improvement: 30
== END 2024-02-24 19:00 | disposition home or self-care (01) ==
LOC: PT 10:30
PROVIDERS: PCP Family Medicine; Referring Provider Family Medicine; Visit Provider Family Medicine
DX: M25.552 Pain in left hip (principal)
CPT/HCPCS: 97110; 97162; 97530

== ENCOUNTER → 2024-03-13 | Outpatient (CLI) | payer OTHER, SELFPAY | END | disposition home or self-care (01) | PROVIDERS: PCP Family Medicine; Referring Provider Family Medicine; Visit Provider Family Medicine | DX: R39.198 Other difficulties with micturition (principal) | CPT/HCPCS: 87086; 87088 ==

== ENCOUNTER → 2024-03-21 | Outpatient (CLI) | payer OTHER, SELFPAY | END | disposition home or self-care (01) | LOC: LABSPEC 14:54 | PROVIDERS: PCP Family Medicine; Visit Provider Family Medicine | DX: R39.198 Other difficulties with micturition (principal) | CPT/HCPCS: 87086 ==

== ENCOUNTER 2024-03-27 11:19 | Day surgery (SDC) | payer OTHER, SELFPAY ==
--- NOTE | 2024-03-21 13:41 | EKG12_ITS ---
Test Reason : PREOP Blood Pressure : / mmHG Vent. Rate : 085 BPM Atrial Rate : 085 BPM P-R Int : 128 ms QRS Dur : 126 ms QT Int : 402 ms P-R-T Axes : 036 -20 025 degrees QTc Int : 478 ms Normal sinus rhythm Right bundle branch block Abnormal ECG Confirmed by Krunal Londono ([id number]), food editor TIM JOINER ([id number]) on 03/22/2024 10:05:08 AM Referred By: Matt Hollis Confirmed By:Krunal Londono
[2024-03-21 14:22] LABS: Hematocrit 38.7 % (40-54); Hemoglobin 12.6 g/dL (13.0-16.5); Mean Corp Hgb Conc 32.6 g/dL (32-36); Mean Corpuscular Hgb 31.7 pg (27.0-32.0); Mean Corpuscular Volume 97.5 fL (80-94); Platelet Count 229 K/mm3 (150-450); RBC Distribution Width CV 12.2 % (11.6-14.6); RBC Distribution Width SD 43.8 fl (35.1-43.9); Red Blood Count 3.97 M/mm3 (4.6-6.2); White Blood Count 5.1 K/mm3 (4.4-11.0)
[2024-03-27] VITALS (8 sets, daily range): BP systolic 107–126; BP diastolic 59–97; PULSE 69–85; RESP 14–16; TEMP 36.3–36.9; O2SAT 93–100; BMI 25.2
--- NOTE | 2024-03-27 12:24 | PCM.PRE.AN2 ---
ASA Classification* ASA Classification ASA Classification: 3 Assessment & Plan Anesthesia* Anesthesia Assessment Anesthesia Assessment: Discussed sedation and/or anesthesia options, risks, benefits, and alternatives with patient/parents/legal guardian/POA. Questions invited. The patient/parents/legal guardian/POA seems to understand and agrees to proceed with anesthesia plan. Reviewed the physical assessment, medical history, allergy history and patient home medications list prior to surgery/procedure/anesthetic and documented any changes. Performed airway and anesthesia risk assessments. Anesthesia Type Anesthesia Type: General History Source History Obtained from:: Patient and Chart Anesthesia Focused Assessment* Oxygen Delivery Method: Room Air Airway Assessment Mouth opens: >3 cm Mallampati Score: III Teeth Condition: Caps/Crowns (Patient has 4 crowns. All tight.) Neck Range of motion (ROM): Full ROM Pertinent Findings EKG Pertinent Findings:: . normal sinus rhythm. Right bundle branch block. Focused Labs Anesthesia Preop lab: CBC WBC 5.1 K/mm3 (4.4-11.0) 03/21/24 13:58 RBC 3.97 M/mm3 (4.6-6.2) L 03/21/24 13:58 Hgb 12.6 g/dL (13.0-16.5) L 03/21/24 13:58 Hct 38.7 % (40-54) L 03/21/24 13:58 Plt Count 229 K/mm3 (150-450) 03/21/24 13:58 CHEMISTRY Potassium 3.7 mmol/L (3.5-5.1) 01/06/24 16:41 Sodium 136 mmol/L (136-145) 01/06/24 16:41 Magnesium 2.3 mg/dL (1.6-2.6) 05/12/19 10:14 BUN 16 mg/dL (7-18) 01/06/24 16:41 Creatinine 1.02 mg/dL (0.70-1.30) 01/06/24 16:41 Glucose 148 mg/dL (74-106) H 01/06/24 16:41 TSH 0.10 uIU/mL (0.358-3.74) L 03/21/24 13:58 COAG Pre-Assessment Diagnosis/Proposed Procedure Planned Operative Procedure(s): (R) Lap Robotic Inguinal Hernia w/mesh Anesthesia History Anesthesia History - radiation oncology therapist: Anesthesia History - radiation oncology therapist Hx Hospitalization Yes: 09/2023 [facility] 03/17/24 09:58 TUMOR - UNCONTROLLED CORTISOL Any Problems With Anesthesia Yes: slow to awaken 03/17/24 09:58 Cholinesterase deficiency No 03/17/24 09:58 You/Your Family Experience No 03/17/24 09:58 fever (hyperthermia) with Relationship Recent Exposure to Contagious No 08/12/21 09:25 Disease Does patient have nerve No 03/17/24 09:58 stimulator Patient instructed to have device shut off --Does patient have Pacemaker or ICD? When Was Last Pacemaker Check QUESTION #4 FULL TEXT: You/Your Family Experience fever (hyperthermia) with Anesthesia Last Oral Intake Last Oral intake: Last Oral Intake NPO since Meds taken in AM with sips of water? Meds patient instructed to take am of surgery Any additional information?: Yes NPO since: 00:00 PONV PONV - radiation oncology therapist: PONV - radiation oncology therapist Female No 03/17/24 09:58 HX of Motion Sickness No 03/17/24 09:58 HX of N/V After Surgery No 03/17/24 09:58 Non-Smoker Yes 03/17/24 09:58 Duration of Surgery greater Yes 03/17/24 09:58 than 60 minutes Number of Risk Factors 2 03/17/24 09:58 PONV Score Moderate Risk 03/17/24 09:58 Height & Weight Height & Weight: Anesthesia: Height & Weight Height 5 ft 10 in 02/21/24 13:45 Respiratory Assessment Respiratory Assessment - radiation oncology therapist: Respiratory Tract Infection Hx - radiation oncology therapist Hx Respiratory Tract Infection No 03/17/24 09:58 STOP Sleep Apnea STOP Sleep Apnea - radiation oncology therapist: STOP Sleep Apnea - radiation oncology therapist Hx Hypertension No 03/17/24 09:58 Hx Sleep Apnea No 03/17/24 09:58 CPAP No 08/12/21 09:25 BIPAP Do you snore loudly (louder No 03/17/24 09:58 than talking or can be heard Do you often feel tired/ No 03/17/24 09:58 fatigued/ sleepy during daytime? Has anyone observed you stop No 03/17/24 09:58 breathing during sleep? STOP Results Negative 03/17/24 09:58 QUESTION #5 FULL TEXT : Do you snore loudly (louder than talking or can be heard through closed doors)? Tobacco Use History Tobacco Use History - radiation oncology therapist: Tobacco Use History - radiation oncology therapist Tobacco Use Smoking Status Never smoker 03/17/24 09:58 Hx Tobacco Use No 03/17/24 09:58 Years Smoking Packs Smoked per Day Smoking Cessation Date was within the last 15 years Hx Smoking Cessation Date Hx Smoking Cessation Counseling Hematologic Medial History Hematologic Hx - radiation oncology therapist: Hematologic Medical Hx - otolaryngology physician Hx of Blood Transfusion No 03/17/24 09:58 Hx of Transfusion in last 3 No 03/17/24 09:58 Months Date of Last Transfusion (if within last 3 months) Ever experience any problems No 03/17/24 09:58 with transfusion(s)? Specify any problems Hx of Preganancy in last 3 N/A 03/17/24 09:58 Months Nurse Filling Out Transfusion NBUCHER 03/17/24 09:58 & Questions: Date: 03/17/24 03/17/24 09:58 Time: 10:00 03/17/24 09:58 Patient unable to answer at this time (ie. confused, unrespo /Reproduction History /Reproductive History - radiation oncology therapist: /Reproductive Hx- radiation oncology therapist Hx Now Gestational Age (in weeks): EDC: Hx Hx Para Hx Section SAB Active Medications Active Medications: Current Medications Generic Name Dose Route Start Last Admin Trade Name Freq PRN Reason Stop Dose Admin Cefazolin Sodium 2 gm/ Sodium 110 mls @ 150 mls/hr 03/27/24 12:55 Chloride IV 03/27/24 13:38 PREOP ONE Lactated Ringer's 1,000 mls @ 15 mls/hr 03/27/24 11:30 IV .Q48H RITA PFSH Medical History Cancer Uses wheelchair History of steroid therapy Thyroid disease Cataract Arthritis [place]'s disease Pituitary adenoma Wears glasses Depression Anxiety Injury of back Back pain Migraine headache Injury of head and neck Gastric reflux Non-smoker Chronic cough History of pain when walking History of edema COVID-19 Hx of aneurysm Tinnitus HTN (hypertension) Home Medications ?Medication ?Instructions ?Recorded ?Last Taken ?Type cholecalciferol (vitamin D3) 50 50 mcg PO DAILY 12/15/19 Unknown History mcg (2,000 unit) capsule (Vitamin D3) fish, borage, flaxseed oils-omega 1 cap PO DAILY 12/15/19 Unknown History 3,6,9 cb #1 400 mg-400 mg-400 mg cap (Triple [place] 3-6-9) Dlpa 1 tab PO DAILY 12/18/19 Unknown History tyrosine 500 mg capsule 500 mg PO DAILY 12/18/19 Unknown History latanoprost 0.005 % eye drops 1 drp EACH EYE DAILY 07/04/21 Unknown History timolol maleate 0.5 % eye drops 1 drp EACH EYE QHS 07/04/21 Unknown History fluoxetine 10 mg capsule 10 mg PO DAILY 08/06/21 03/27/24 09:30 History B-complex with vitamin C 1 cap PO DAILY 02/21/24 Unknown History KEVIN 100 mg-theanine 100 1 cap PO DAILY 02/21/24 Unknown History mg-ashwagandha extract 225 mg capsule (KEVIN Soothe) Lactobacillus acidophilus 250 500 mmu cells PO TID 02/21/24 Unknown History million cell capsule (Probiotic Acidophilus) acetylcarnitine HCl 250 mg capsule 250 mg PO DAILY 02/21/24 Unknown History ashwagandha extract 500 mg capsule 500 mg PO DAILY 02/21/24 Unknown History collagen (bovine) 100 % topical 1 ea topical DAILY 02/21/24 Unknown History powder in packet hydrocortisone 5 mg tablet 10 - 15 mg PO TID 02/21/24 03/27/24 12:03 History 25 mg levothyroxine 100 mcg tablet 100 mcg PO QDAY 02/21/24 Unknown History lysine 600 mg tablet 600 mg PO DAILY 02/21/24 Unknown History magnesium 200 mg tablet 200 mg PO DAILY 02/21/24 Unknown History melatonin 3 mg capsule 3 mg PO HS PRN sleep 02/21/24 Unknown History temozolomide 100 mg capsule 200 mg PO BID 02/21/24 Unknown History trazodone 50 mg tablet 50 mg PO QHS 02/21/24 Unknown History valerian root 500 mg capsule 500 mg PO QHS PRN insomnia 02/21/24 Unknown History Allergy/AdvReac Type Severity Reaction Status Date / Time citalopram (From Celexa) Allergy Mild Unknown Verified 03/27/24 12:03 sertraline (From Zoloft) Allergy Mild Unknown Verified 03/27/24 12:03 doxycycline AdvReac Severe Hives Verified 03/27/24 12:03 Family History Father Diabetes Uncle Cancer PANCREATIC Surgical History S/P brain surgery (~02/2022) S/P left inguinal hernia repair S/P surgical manipulation of ankle joint S/P left knee surgery S/P right knee surgery S/P tonsillectomy Previous back surgery Social History Smoking Status: Never smoker alcohol intake: current alcohol intake frequency: holidays/special occasions only Review of Systems (Anesthesia) ROS Narrative System reviewed and no additional complaints, except as documented. Physical Exam Eyes Eyes Narrative: Patient has a slow movement of his right eye.
--- NOTE | 2024-03-27 12:27 | PCM.HP.BLA ---
History and Physical Date of Admission: 03/27/24 Intake Vital Signs 08/12/2108:19 02/20/2413:45 Height 5 ft 10 in 5 ft 10 in Weight: 174 lb BMI 25.0 BP 124/90 H Blood Pressure Location Rt brachial Position Sitting Respiration 18 Intake Visit Reasons: INGUINAL HERNIA Chief Complaint: inguinal hernia Filler Shredder Machine Required: No Is patient in pain?: Yes (right groin) Allergies citalopram (From Celexa) Allergy (Mild, Verified 02/21/24 13:45) Unknownsertraline (From Zoloft) Allergy (Mild, Verified 02/21/24 13:45) Unknown Medications ?Medication ?Instructions ?Recorded ?Confirmed ?Type cholecalciferol (vitamin D3) 50 50 mcg PO DAILY 12/15/19 02/21/24 History mcg (2,000 unit) capsule (Vitamin D3) fish, borage, flaxseed oils-omega 1 cap PO DAILY 12/15/19 02/21/24 History 3,6,9 cb #1 400 mg-400 mg-400 mg cap (Triple [place] 3-6-9) Dolpa 1 tab PO DAILY 12/18/19 02/21/24 History tyrosine 500 mg capsule 500 mg PO DAILY 12/18/19 02/21/24 History latanoprost 0.005 % eye drops 1 drp EACH EYE DAILY 07/04/21 02/21/24 History timolol maleate 0.5 % eye drops 1 drp EACH EYE QHS 07/04/21 02/21/24 History fluoxetine 10 mg capsule 10 mg PO DAILY 08/06/21 02/21/24 History B-complex with vitamin C 1 cap PO DAILY 02/21/24 02/21/24 History KEVIN 100 mg-theanine 100 cap PO 02/21/24 02/21/24 History mg-ashwagandha extract 225 mg capsule (EKVIN Soothe) Lactobacillus acidophilus 250 500 mmu cells PO TID 02/21/24 02/21/24 History million cell capsule (Probiotic Acidophilus) SAMe butanedisulfonate 400 ea PO 02/21/24 02/21/24 History mg-betaine 600 mg oral powder packet acetylcarnitine HCl 250 mg capsule 250 mg PO DAILY 02/21/24 02/21/24 History ashwagandha extract 500 mg capsule mg PO 02/21/24 02/21/24 History collagen (bovine) 100 % topical ea topical 02/21/24 02/21/24 History powder in packet hydrocortisone 5 mg tablet 10 mg PO BID 02/21/24 02/21/24 History levothyroxine 100 mcg tablet 100 mcg PO QDAY 02/21/24 02/21/24 History lysine 600 mg tablet 600 mg PO DAILY 02/21/24 02/21/24 History magnesium 200 mg tablet 200 mg PO DAILY 02/21/24 02/21/24 History melatonin 3 mg capsule 3 mg PO HS PRN 02/21/24 02/21/24 History phenylalanine 500 mg tablet 500 mg PO DAILY 02/21/24 02/21/24 History (L-Phenylalanine) temozolomide 100 mg capsule 200 mg PO BID 02/21/24 02/21/24 History trazodone 50 mg tablet 50 mg PO QHS 02/21/24 02/21/24 History valerian root 500 mg capsule 500 mg PO QHS PRN 02/21/24 02/21/24 History Have you fallen in the past year?: No PFSH Medical History (Updated 02/21/24 @ 15:[address] Matt Hollis MD) Pituitary adenoma Wears glasses Depression Anxiety Injury of back Back pain Migraine headache Injury of head and neck Gastric reflux Non-smoker Chronic cough History of pain when walking History of edema COVID-19 Hx of aneurysm Tinnitus HTN (hypertension) Surgical History (Updated 02/21/24 @ 13:44 by Alyse Palomino) S/P brain surgery S/P left inguinal hernia repair S/P surgical manipulation of ankle joint S/P left knee surgery S/P right knee surgery S/P tonsillectomy Previous back surgery Family History Father DiabetesUncle Cancer PANCREATIC Social History Smoking Status: Never smoker alcohol intake: current alcohol intake frequency: holidays/special occasions only HPI HPI HPI: The patient is a 53-year-old male who has been here before for left inguinal hernia repair. The patient reports he is now having bulging and pain on the right side. He has no complaints on the left. He reports that he is able to reduce the right inguinal hernia. He denies nausea or vomiting or fevers or chills. ROS General General: Yes weight change and fatigue; No appetite, colon cancer, breast cancer or weakness HEENT HEENT: No difficulty swallowing, eye injury, eye surgery, swollen glands or hoarseness Endo Endocrine: No thyroid disease, diabetes mellitus, thyroid cancer, Hair loss, heat intolerance or cold intolerance Skin Skin: No rash or changing moles Breast Breast: No left breast lump, right breast lump, nipple discharge, breast pain, abnormal mammogram, abnormal US or breast enlargement Musc Musculoskeletal: Yes back problems; No arthritis, rheumatoid arthritis, gout or joint pain Cardio Cardiovascular: No murmur, pacemaker, heart disease, atrial fibrillation, high blood pressure, heart attack, heart stent, palpitations, shortness of breat with exertion or chest pain Psych Psychiatric: No depression, anxiety or hearing voices Resp Respiratory: No shortness of breath, No sleep apnea, No cough, No COPD, No asthma, No emphysema and No wheezing Gastro Gastrointestinal: No abdominal pain, No nausea or vomiting, No diarrhea, No constipation, No blood in stool, No acid reflux, No hemorrhoids, No ulcers, No gallbladder problem and No black,tarry stools Miguel Hematologic: No blood thinners, No blood disorders, No bleeding, No anemia and No blood clots Neuro Neurologic: No system reviewed and no additional complaints, except as documented, No as per HPI, No abnormal gait, No abnormal hearing, No abnormal movements, No abnormal speech, No behavioral changes, No burning sensations, No confusion, No convulsions, No disequilibrium, No dizziness, No localized weakness, No frequent falls, No headache(s), No lack of coordination, No loss of vision, No memory loss, Yes numbness, No other visual disturbances, No radicular pain, No restless legs, No sensory deficit, No syncope, Yes tingling, No tremor(s), No weakness and No other Exam Const General: cooperative Orientation: alert and oriented x3 HENMT Head: normal to inspection Neck Neck: normal visual inspection and full ROM Chest Chest palpation & inspection: normal inspection of the chest Resp Effort & Inspection: normal respiratory effort Auscultation: clear to auscultation bilaterally Cardio Rate: regular rate Rhythm: regular rhythm GI Inspection: non-distended Palpation: soft, hernia direct inguinal on the right and nontender Skin General: no rashes or lesions noted Neuro General: patient alert and patient oriented x3 Extrem General: full ROM Psych Appearance: grossly normal Mental Status: mental status grossly normal Assessment and Plan Assessment and Plan (1) Right inguinal hernia: Status: Acute Plan: The patient has a right inguinal hernia. I discussed robotic assisted laparoscopic right inguinal hernia repair with mesh. He has had the same surgery on the left. I discussed the risks including but not noted to bleeding, infection, injury other organ such as the bowel or bladder or testicle or blood supply to the testicle. Patient understands all the risks and is willing to proceed. Matt Hollis MD Pager: [facility] [address] [place] [address], [address] [place] [address] Office: I have examined the patient and the H&P has been reviewed. There are no clinical changes since date of exam.
[2024-03-27] MEDS: Lactated Ringers 1,000 ML 15 ML IV (12:34)
[2024-03-27] MEDS: Cefazolin 2 GM in 0.9% Normal Saline (100mL Bag) 100 ML IV (12:47)
[2024-03-27] MEDS: Bupivacaine Mpf 0.5% 30 ML VIAL (13:35)
--- NOTE | 2024-03-27 13:37 | PCM.OPRPT ---
Report of Operation Date of Procedure: 03/27/24 Pre-Operative Diagnosis: Right inguinal hernia Post-Operative Diagnosis: Right inguinal hernia Surgery/Procedure Performed:: Robotic assisted laparoscopic right inguinal hernia repair with mesh Type of Anesthesia: General/Regional Specimen's removed: None Estimated Blood Loss (mL): 10 Description of Procedure: Patient was brought back to the operating room and general anesthesia was induced. The abdomen was prepped and draped in usual sterile fashion. A midline incision was made over his old midline incision and the fascia was grasped and elevated. A Veress needle was placed into the abdomen and it was insufflated to 15 mmHg. Veress needle was removed and a port was placed. Camera was then placed through the port and there were no injuries from entry. Patient was placed in Trendelenburg position. He had an indirect right inguinal hernia. Under direct visualization an 8 mm port was placed in the left lateral abdomen as well as the right lateral abdomen and the robot was docked. Next the peritoneum in the right lower quadrant was incised using electrocautery scissors. Dissection was carried inferiorly until the hernia was encountered. The hernia was dissected free circumferentially and reduced. Next a ProGrip mesh was placed over the right inguinal hernia region with good coverage. The peritoneum was then reapproximated using a running 3 OV lock suture. The mesh was completely covered with peritoneum at the end of the case. Next the robot was undocked and the ports were removed and the abdomen was allowed to desufflate. The scrotum was checked and contained both testicles. The skin incisions were injected with local anesthetic and closed with interrupted 4-0 Monocryl sutures and Steri-Strips and bandages. Patient was awoken and taken to PACU in stable condition and tolerated the procedure well. Grafts/Implants Used: ProGrip to the right groin Admit VTE Documentation VTE Mechan Device Prophylaxis: SCD's
--- NOTE | 2024-03-27 13:41 | EX.PCM.DISCH ---
Discharge Instructions Procedure Hernia Diet Discharge Diet: Light diet - advance as tolerated Activity Discharge Activity: May Not Drive (for 2-3 days or while taking narcotic pain meds.) and May Shower (with the bandage in place 1-2 days after surgery.) Lifting Restrictions: 20 pounds for 4 weeks. Additional Activity Instructions:: Climbing stairs is fine, walking is encouraged. Sitting in bed may be uncomfortable. Sitting up using your lateral muscles (sitting up sideways) is usually more comfortable. Do not drive, work heavy equipment of sign legal documents for 24 hours. If your hernia repair was an inguinal repair, you may have scrotal swelling, an ice pack and/or athletic support can provide more comfort. Pain medications may cause nausea, you should typically eat light foods as you take your pain medications. Pain medications may also cause constipation. If you have difficulty with this, discuss with your doctor. Alternate ibuprofen and Tylenol for pain control, oxycodone for breakthrough pain Dressing / Incision Call your doctor if your incision/area has: Continuous Slow Oozing, Sudden Increased Bleeding, Increased Pain/ Swelling, Increased Redness and Foul Smelling Discharge Call your doctor if you observe: Fever of 101 or Higher Suture Line Care: Avoid Pulling/Pushing and Avoid Pinching/Bending Remove Dressing in: 2 days (Remove clear bandages in 2 days, remove Steri-Strips in 7 to 10 days.) Follow Up Care Please Follow Up With: Matt Hollis MD When: Please call to schedule 2 week follow up appointment. [phone] Test Results: Test results from this visit will be discussed in further detail at your follow-up appointment, if applicable. Discharge Plan Admission Attending Provider: Matt Hollis Primary Care Provider: Anshu Billings Instructions Print Language: Macedonian Discharge Orders/Prescriptions Prescriptions: New oxycodone 5 mg Tablet 5 - 10 mg PO Q4H PRN PRN (Reason: Pain Score 4-10) 5 Days Qty: 10 0RF No Action cholecalciferol (vitamin D3) [Vitamin D3] 50 mcg (2,000 unit) capsule 50 mcg PO DAILY fish,bora,flax oils-[id number] [Triple [place] 3-6-9] 400-400-400 mg capsule 1 cap PO DAILY hydrocortisone 5 mg tablet 10 - 15 mg PO TID Rx Instructions: PT TO TAKE HIGHER DOSE PRE AND POST OP valerian root 500 mg capsule 500 mg PO QHS PRN (Reason: insomnia) trazodone 50 mg tablet 50 mg PO QHS temozolomide 100 mg capsule 200 mg PO BID levothyroxine 100 mcg tablet 100 mcg PO QDAY B-complex with vitamin C Capsule 1 cap PO DAILY magnesium 200 mg tablet 200 mg PO DAILY acetylcarnitine HCl 250 mg capsule 250 mg PO DAILY lysine 600 mg tablet 600 mg PO DAILY collagen (bovine) 100 % powder in packet 1 ea topical DAILY Probiotic Acidophilus 250 million cell capsule 500 mmu cells PO TID melatonin 3 mg capsule 3 mg PO HS PRN (Reason: sleep) KEVIN Soothe 100-100-225 mg capsule 1 cap PO DAILY ashwagandha extract 500 mg capsule 500 mg PO DAILY tyrosine 500 MG capsule 500 mg PO DAILY Dlpa 1 tab PO DAILY latanoprost 0.005 % drops 1 drp EACH EYE DAILY timolol maleate 0.5 % drops 1 drp EACH EYE QHS Patient Comments: place 1 drop into both eyes at bedtime fluoxetine 10 mg capsule 10 mg PO DAILY Patient Comments: take 1 capsule by mouth once daily Other Ambulatory Orders: 12 Lead EKG (Routine) Timeframe: [id number] Location: None Selected Ordered By: Dr. Jordan Perales Referrals / Follow Up: Anshu Billings MD [Primary Care Provider] - Disposition Disposition (needs filled in before D/C Order can be placed): Home, Self Care
--- NOTE | 2024-03-27 13:56 | PCM.POST.ANE ---
Anesthesia: Postop Eval I Current Vital Signs Temperature: 97.7 F Pulse Rate: 80 Blood Pressure: 112/59 Respiratory Rate: 16 Pulse Ox: 95 Oxygen Delivery Method: Room Air Assessment Airway patent: Yes Spontaneous unlabored respirations: Yes Mental status: Awake and Calm nausea: No Vomiting: No Anesthesia Complication: No Fluid Hydration Crystalloid volume administer (ml): 1,200 Total IV fluid infused: 1,200 Progress Note Anesthesia document: Postop Eval 1 completed: Yes
--- NOTE | 2024-03-27 14:12 | POSTOPAN2_ITS ---
Anesthesia Postop Eval I Sum Postop Eval Completion status Anesthesia document: Postop Eval 1 completed: Yes Anesthesia Postop Eval I Summary Anesthesia Postop Eval I Summary: Anesthesia Postop Eval I: Assessment Summary Airway patent Yes 03/27/24 13:57 [email or web address] Spontaneous unlabored Yes 03/27/24 13:57 [email or web address] [email or web address] respirations Mental status Awake,Calm 03/27/24 13:57 [email or web address] [email or web address] nausea No 03/27/24 13:57 [email or web address] Vomiting No 03/27/24 13:57 [email or web address] Anesthesia Postop Eval I: Fluid Summary Crystalloid volume administer 1,200 03/27/24 13:57 [email or web address] (ml) Colloids volume administered ( ml) Blood Product volume administered (ml) Total IV fluid infused 1,200 03/27/24 13:57 [email or web address] Anesthesia Postop Eval I: Summary Notes Anesthesia Complication No 03/27/24 13:57 [email or web address] Anesthesia Complication Comment: Post-operative progress note Anesthesia: Postop Eval II Evaluation Mental status: Awake and Calm Pain Level: 1 nausea: No Vomiting: No Complications Anesthesia Complication: No
--- NOTE | 2024-03-27 14:12 | PCM.POSTANE2 ---
Anesthesia Postop Eval I Sum Postop Eval Completion status Anesthesia document: Postop Eval 1 completed: Yes Anesthesia Postop Eval I Summary Anesthesia Postop Eval I Summary: Anesthesia Postop Eval I: Assessment Summary Airway patent Yes 03/27/24 13:57 [email or web address] Spontaneous unlabored Yes 03/27/24 13:57 [email or web address] respirations Mental status Awake,Calm 03/27/24 13:57 [email or web address] nausea No 03/27/24 13:57 [email or web address] Vomiting No 03/27/24 13:57 [employer] CL[email or web address] Anesthesia Postop Eval I: Fluid Summary Crystalloid volume administer 1,200 03/27/24 13:57 [email or web address] (ml) Colloids volume administered ( ml) Blood Product volume administered (ml) Total IV fluid infused 1,200 03/27/24 13:57 [email or web address] Anesthesia Postop Eval I: Summary Notes Anesthesia Complication No 03/27/24 13:57 [employer] CL[email or web address] Anesthesia Complication Comment: Post-operative progress note Anesthesia: Postop Eval II Evaluation Mental status: Awake and Calm Pain Level: 1 nausea: No Vomiting: No Complications Anesthesia Complication: No
[2024-03-27] MEDS: Acetaminophen 325 MG Tablet 650 MG PO (14:32)
[2024-03-27] MEDS: oxyCODONE 5 MG Tablet PO (15:47)
== END 2024-03-27 16:16 | disposition home or self-care (01) ==
LOC: SDC 11:23 → AC 11:25
PROVIDERS: Anesthesiology; PCP Family Medicine; Referring Provider Surgery; Visit Provider Surgery
PROC: (CPT 49650; principal; 2024-03-27 12:35)
DX: K40.90 Unilateral inguinal hernia, without obstruction or gangrene, not specified as recurrent (principal); D35.2 Benign neoplasm of pituitary gland; Z86.16 Personal history of COVID-19; I10 Essential (primary) hypertension; K21.9 Gastro-esophageal reflux disease without esophagitis
CPT/HCPCS: 49650; 00840; 36415; 84443; 85027; 93005; J7120; J2405

== ENCOUNTER → 2024-07-25 | Outpatient (CLI) | payer OTHER, SELFPAY ==
[2024-07-25 19:02] LABS: Vitamin B12 440 pg/mL (211-911)
[2024-07-31 09:23] LABS: VITAMIN B6 31.5 ug/L (3.4-65.2); Vitamin B1, Thiamine 136.2 nmol/L (66.5-200.0)
== END | disposition home or self-care (01) ==
PROVIDERS: PCP Family Medicine; Visit Provider Family Medicine
DX: G62.9 Polyneuropathy, unspecified (principal)
CPT/HCPCS: 36415; 82607; 82746; 84207; 84425